=== PATIENT | male | born 1965 | race African-American/Black ===

== ENCOUNTER 2017-05-15 15:04 | Observation (INO) | payer OTHER ==
[2017-05-15] MEDS ORDERED: VERA1TAB17 PO (15:26)
[2017-05-15] MEDS ORDERED: ASPI-516 CHEW (15:26)
--- NOTE | 2017-05-15 15:27 | PD ---
HPI Chief Complaint: Chest pain Time Seen by Provider: 15:26 Travel History International Travel<30 days: No Contact w/Intl Traveler<30days: No History of Present Illness HPI 51yo M with PMH of prostate CA on ciarichards presents to the ED with c/o left sided chest pain that started an hour ago. It is squeezing and travels to left shoulder with some numbness in left shoulder. Associated with sob, nausea. Pt had an episode of chest pain this morning and went to OR where he had an EKG and was told to go to the nearest ED if he has chest pain again . No blood work was done. Denies any fever, vomiting, abdominal pain. Follows with [place] special police officer. Said had cardiac cath 2 years ago and showed myocardial bridging of the LAD. [facility] Social History Tobacco Use: No Allergies-Medications (Allergen,Severity, Reaction): Coded Allergies: prednisone (Verified Allergy, Mild, rash, 05/15/17) Nitrate Analogues (Verified Allergy, Unknown, 05/15/17) Reported Meds & Prescriptions Reported Meds & Active Scripts Active Reported Aspirin 81 Mg Chew 81 Mg CHEW DAILY Verapamil ER 24 HR (Verapamil HCl) 240 Mg Tab 240 Mg PO HS Review of Systems Except as stated in HPI: all other systems reviewed are Neg Physical Exam Narrative GENERAL: 51yo M in mild distress. SKIN: Focused skin assessment warm/dry. HEAD: Atraumatic. Normocephalic. EYES: Pupils equal and round. No scleral icterus. No injection or drainage. CARDIOVASCULAR: Regular rate and rhythm. No murmur appreciated. RESPIRATORY: No accessory muscle use. Clear to auscultation. Breath sounds equal bilaterally. GASTROINTESTINAL: Abdomen soft, non-tender, nondistended. MUSCULOSKELETAL: No obvious deformities. No clubbing. No cyanosis. No edema. NEUROLOGICAL: Awake and alert. No obvious cranial nerve deficits. Motor grossly within normal limits. Normal speech. PSYCHIATRIC: Appropriate mood and affect; insight and judgment normal. Data Data Last Documented VS Vital Signs Date Time Temp Pulse Resp B/P (MAP) Pulse Ox O2 Delivery O2 Flow Rate FiO2 05/15/17 16:31 68 124/73 (90) 98 05/15/17 15:32 98.7 16 Orders Orders Basic Metabolic Panel (Bmp) (05/15/17 15:26) Complete Blood Count With Diff (05/15/17 15:26) Magnesium (Mg) (12/15/17 15:26) Prothrombin Time / Inr (Pt) (05/15/17 15:26) Act Partial Throm Time (Ptt) (05/15/17 15:26) Troponin I (05/15/17 15:26) Chest, Single Ap (05/15/17 15:26) Ondansetron Inj (Zofran Inj) (05/15/17 16:00) Morphine Inj (Morphine Inj) (05/15/17 16:00) Admit Order (Ed Use Only) (05/15/17 16:52) Labs Laboratory Tests Test 05/15/17 15:20 White Blood Count 5.8 TH/MM3 Red Blood Count 4.86 MIL/MM3 Hemoglobin 13.4 GM/DL Hematocrit 41.2 % Mean Corpuscular Volume 84.7 FL Mean Corpuscular Hemoglobin 27.5 PG Mean Corpuscular Hemoglobin Concent 32.5 % Red Cell Distribution Width 13.7 % Platelet Count 307 TH/MM3 Mean Platelet Volume 7.5 FL Neutrophils (%) (Auto) 52.0 % Lymphocytes (%) (Auto) 30.0 % Monocytes (%) (Auto) 8.2 % Eosinophils (%) (Auto) 6.5 % Basophils (%) (Auto) 3.3 % Neutrophils # (Auto) 3.0 TH/MM3 Lymphocytes # (Auto) 1.7 TH/MM3 Monocytes # (Auto) 0.5 TH/MM3 Eosinophils # (Auto) 0.4 TH/MM3 Basophils # (Auto) 0.2 TH/MM3 CBC Comment DIFF FINAL Differential Comment Prothrombin Time 10.8 SEC Prothromb Time International Ratio 1.1 RATIO Activated Partial Thromboplast Time 28.0 SEC D-Dimer Quantitative (PE/DVT) 0.76 MG/L FEU Blood Urea Nitrogen 14 MG/DL Creatinine 0.92 MG/DL Random Glucose 111 MG/DL Calcium Level 8.9 MG/DL Magnesium Level 1.9 MG/DL Sodium Level 138 MEQ/L Potassium Level 3.5 MEQ/L Chloride Level 104 MEQ/L Carbon Dioxide Level 26.5 MEQ/L Anion Gap 8 MEQ/L Estimat Glomerular Filtration Rate 105 ML/MIN Troponin I LESS THAN 0.02 NG/ML MDM Medical Decision Making Medical Screen Exam Complete: Yes Emergency Medical Condition: Yes Interpretation(s) EKG: NSR 69bpm. LAD. LVH. No ST segment elevation or depression. Differential Diagnosis ACS vs. pericarditis vs. GERD Narrative Course 51yo M with typical chest pain. Labs reviewed, no leukocytosis. Troponin negative. CXR showed mild atelectasis. Pt already took aspirin and given morphine 2mg which helped with the pain. Will admit to chest pain center for serial EKG and cardiac enzymes. Diagnosis Primary Impression: Chest pain Qualified Codes: R07.9 - Chest pain, unspecified Admitting Information Admitting Physician Requests: Alis Velasco DO May 15, 2017 15:27
[2017-05-15 15:32] VITALS: BP 142/84; PULSE 70; RESP 16; TEMP 98.7; O2SAT 97
--- NOTE | 2017-05-15 15:56 | RADRPT ---
EXAM DATE/TIME: 05/15/2017 15:46 [facility] COMPARISON: No previous studies available for comparison. INDICATIONS : Chest pain. MEDICAL HISTORY : None. SURGICAL HISTORY : None. ENCOUNTER: Initial ACUITY: 1 day PAIN SCORE: 7/10 LOCATION: Bilateral chest FINDINGS: A single view of the chest demonstrates the lungs to be symmetrically aerated without evidence of mas s, infiltrate or effusion. There is mild platelike atelectasis in both lung bases. The cardiomediast inal contours are unremarkable. Osseous structures are intact. CONCLUSION: Mild platelike atelectasis in both lower lungs. Enzo Mckinney MD on May 15, 2017 at 15:54 Board Certified Radiologist. This report was verified electronically.
[2017-05-15 15:58] LABS: BASOPHIL # 0.2 TH/MM3 (0-0.2); BASOPHIL % 3.3 % (0.0-2.0); EOSINOPHIL # 0.4 TH/MM3 (0-0.4); EOSINOPHIL % 6.5 % (0.0-4.0); HEMATOCRIT 41.2 % (39.0-51.0); HEMO FLAGS DIFF FINAL; LYMPHOCYTE # 1.7 TH/MM3 (1.0-4.8); MEAN CELL VOLUME 84.7 FL (80.0-100.0); MEAN CORPUSCULAR HEMOGLOBIN 27.5 PG (27.0-34.0); MEAN CORPUSCULAR HGB CONC 32.5 % (32.0-36.0); MONO % 8.2 % (0.0-8.0); PLATELET COUNT 307 TH/MM3 (150-450); RED BLOOD COUNT 4.86 MIL/MM3 (4.50-5.90); RED CELL DISTRIBUTION WIDTH 13.7 % (11.6-17.2); WHITE BLOOD COUNT 5.8 TH/MM3 (4.0-11.0)
[2017-05-15] MEDS ORDERED: MORPHINE SULFATE 2 MG/ML INJ IV PUSH ONE (16:00)
[2017-05-15] MEDS ORDERED: ONDANSETRON HCL 4 MG/2 ML VIAL IV PUSH ONE (16:00)
[2017-05-15 16:01] LABS: CHLORIDE 104 MEQ/L (98-107); POTASSIUM 3.5 MEQ/L (3.5-5.1); SODIUM (NA) 138 MEQ/L (136-145)
[2017-05-15 16:04] LABS: ANION GAP 8 MEQ/L (5-15); BICARBONATE 26.5 MEQ/L (21.0-32.0); BLOOD UREA NITROGEN 14 MG/DL (7-18); MAGNESIUM 1.9 MG/DL (1.5-2.5)
[2017-05-15 16:07] LABS: GLOMERULAR FILTRATION RATE 105 ML/MIN (>89)
[2017-05-15 16:15] LABS: INTERNATIONAL NORMALIZED RATIO 1.1 RATIO; PROTHROMBIN TIME - PATIENT 10.8 SEC (9.8-11.6)
[2017-05-15 16:31] VITALS: BP 124/73; PULSE 68; O2SAT 98
[2017-05-15] MEDS ORDERED: ACETAMINOPHEN 325 MG TAB PO PRN (17:15)
[2017-05-15] MEDS ORDERED: SODIUM CHLORIDE 0.9% FLUSH 10 ML FLUSH IV FLUSH PRN (17:15)
[2017-05-15] MEDS ORDERED: NALOXONE HCL 0.4 MG/ML AMP IV PUSH PRN (17:15)
[2017-05-15] MEDS ORDERED: ONDANSETRON HCL 4 MG/2 ML VIAL IVP PRN (17:15)
--- NOTE | 2017-05-15 17:24 | HHI.HP ---
[facility] Admission Diagnosis Chest pain Diagnoses: Chief Complaint: Chest pain Travel History International Travel<30 Days: No Contact w/Intl Traveler <30 Da: No Traveled to Known Affected Are: No History of Present Illness This patient is a 51-year-old gentleman with a known history of myocardial bridging per his own report and per cardiac catheterization done 2 years ago through the [facility] in [place]. Patient has had intermittent angina since 2 years ago. He reports increasing chest pain over the last several days with worsening today. Patient was at work and on his way back he did have a chest pain so he did come to our hospital although he does live in [place]. He says the pain is severe substernal radiating into the neck and to the left shoulder. He does have abnormal EKG on my report there is a sinus arrhythmia however there are no signs of ischemic changes. His cardiac enzymes are negative. Patient has had Cialis regularly and does not take nitroglycerin and does not tolerate beta blockers due to dizziness. He has been on verapamil. He reports intermittent arrhythmias including episodes of nonsustained ventricular tachycardia which have coincided with his chest pain/angina. He also reports electrolyte abnormalities that have needed correction as well. This time the patient is chest pain-free after IV morphine. He will be observed and cardiology will be notified for any assistance in managing this, atypical cardiac related chest pain Review of Systems Constitutional: DENIES: Diaphoretic episodes, Fatigue, Fever, Weight gain, Weight loss, Chills, Dizziness, Change in appetite, Night Sweats Endocrine: DENIES: Heat/cold intolerance, Polydipsia, Polyuria, Polyphagia Eyes: DENIES: Blurred vision, Diplopia, Eye inflammation, Eye pain, Vision loss , Photosensitivity, Double Vision Ears, nose, mouth, throat: DENIES: Tinnitus, Hearing loss, Vertigo, Nasal discharge, Oral lesions, Throat pain, Hoarseness, Ear Pain, Running Nose, Epistaxis, Sinus Pain, Toothache, Odynophagia Respiratory: DENIES: Apneas, Cough, Snoring, Wheezing, Hemoptysis, Sputum production, Shortness of breath Cardiovascular: COMPLAINS OF: Chest pain, DENIES: Palpitations, Syncope, Dyspnea on Exertion, PND, Lower Extremity Edema, Orthopnea, Claudication Gastrointestinal: DENIES: Abdominal pain, Black stools, Bloody stools, Constipation, Diarrhea, Nausea, Vomiting, Difficulty Swallowing, Anorexia Genitourinary: DENIES: Sexual dysfunction, Urinary frequency, Urinary incontinence, Urgency, Hematuria, Dysuria, Nocturia, Penile Discharge, Testicular Pain, Testicular Swelling Musculoskeletal: DENIES: Joint pain, Muscle aches, Stiffness, Joint Swelling, Back pain, Neck pain Integumentary: DENIES: Abnormal pigmentation, Nail changes, Pruritus, Rash Hematologic/lymphatic: DENIES: Bruising, Lymphadenopathy Immunologic/allergic: DENIES: Eczema, Urticaria Neurologic: DENIES: Abnormal gait, Headache, Localized weakness, Paresthesias, Seizures, Speech Problems, Tremor, Poor Balance Psychiatric: DENIES: Anxiety, Confusion, Mood changes, Depression, Hallucinations, Agitation, Suicidal Ideation, Homicidal Ideation, Delusions Except as stated in HPI: all other systems reviewed are Neg Past Family Social History Past Medical History Prostate cancer Myocardial bridging syndrome History of nonsustained atrial tachycardia Angina Past Surgical History Radical prostatectomy, cholecystectomy Reported Medications Reviewed in the EMR, nothing new Allergies: Coded Allergies: prednisone (Verified Allergy, Mild, rash, 05/15/17) Nitrate Analogues (Verified Allergy, Unknown, 05/15/17) Active Ordered Medications Reviewed in the EMR Family History Father at 62 of unknown causes, mother from lung cancer in her 80s 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 SKIN: No rashes, ecchymoses or lesions. Cool and dry. HEAD: Atraumatic. Normocephalic. No temporal or scalp tenderness. EYES: Pupils equal round and reactive. Extraocular motions intact. No scleral icterus. No injection or drainage. ENT: Nose without bleeding, purulent drainage or septal hematoma. Throat without erythema, tonsillar hypertrophy or exudate. Uvula midline. Airway patent. NECK: Trachea midline. No JVD or lymphadenopathy. Supple, nontender, no meningeal signs. CARDIOVASCULAR: Regular rate and rhythm without murmurs, gallops, or rubs. RESPIRATORY: Clear to auscultation. Breath sounds equal bilaterally. No wheezes , rales, or rhonchi. GASTROINTESTINAL: Abdomen soft, non-tender, nondistended. No hepato-splenomegaly , or palpable masses. No guarding. MUSCULOSKELETAL: Extremities without clubbing, cyanosis, or edema. No joint tenderness, effusion, or edema noted. No calf tenderness. Negative Homans sign bilaterally. NEUROLOGICAL: Awake and alert. Cranial nerves II through XII intact. Motor and sensory grossly within normal limits. Five out of 5 muscle strength in all muscle groups. Normal speech. Laboratory Laboratory Tests Test 05/15/17 15:20 White Blood Count 5.8 Red Blood Count 4.86 Hemoglobin 13.4 Hematocrit 41.2 Mean Corpuscular Volume 84.7 Mean Corpuscular Hemoglobin 27.5 Mean Corpuscular Hemoglobin Concent 32.5 Red Cell Distribution Width 13.7 Platelet Count 307 Mean Platelet Volume 7.5 Neutrophils (%) (Auto) 52.0 Lymphocytes (%) (Auto) 30.0 Monocytes (%) (Auto) 8.2 Eosinophils (%) (Auto) 6.5 Basophils (%) (Auto) 3.3 Neutrophils # (Auto) 3.0 Lymphocytes # (Auto) 1.7 Monocytes # (Auto) 0.5 Eosinophils # (Auto) 0.4 Basophils # (Auto) 0.2 CBC Comment DIFF FINAL Differential Comment Prothrombin Time 10.8 Prothromb Time International Ratio 1.1 Activated Partial Thromboplast Time 28.0 Blood Urea Nitrogen 14 Creatinine 0.92 Random Glucose 111 Calcium Level 8.9 Magnesium Level 1.9 Sodium Level 138 Potassium Level 3.5 Chloride Level 104 Carbon Dioxide Level 26.5 Anion Gap 8 Estimat Glomerular Filtration Rate 105 Troponin I LESS THAN 0.02 Result Diagram: 05/15/17 1520 05/15/17 1520 Imaging Last Impressions Chest X-Ray 05/15/17 1526 Signed Impressions: Service Date/Time: Monday, May 15, 2017 15:46 - CONCLUSION: Mild platelike atelectasis in both lower lungs. Enzo Mckinney MD Caprinmaricel VTE Risk Assessment Caprini VTE Risk Assessment: Mod/High Risk (score >= 2) Caprini Risk Assessment Model Point Value = 1 Point Value = 2 Point Value = 3 Point Value = 5 Age 41-60 Minor surgery BMI > 25 kg/m2 Swollen legs Varicose veins or History of unexplained or recurrent spontaneous Oral contraceptives or hormone replacement Sepsis (< 1 month) Serious lung disease, including pneumonia (< 1 month) Abnormal pulmonary function Acute myocardial infarction Congestive heart failure (< 1 month) History of inflammatory bowel disease Medical patient at bed rest Age 61-74 Arthroscopic surgery Major open surgery (> 45 min) Laparoscopic surgery (> 45 min) Malignancy Confined to bed (> 72 hours) Immobilizing plaster cast Central venous access Age >= 75 History of VTE Family history of VTE Factor V Leiden Prothrombin [id number] Lupus anticoagulant Anticardiolipin antibodies Elevated serum homocysteine Heparin-induced thrombocytopenia Other congenital or acquired thrombophilia Stroke (< 1 month) Elective arthroplasty Hip, pelvis, or leg fracture Acute spinal cord injury (< 1 month) Prophylaxis Regimen Total Risk Factor Score Risk Level Prophylaxis Regimen 0-1 Low Early ambulation 2 Moderate Order ONE of the following: *Sequential Compression Device (SCD) *Heparin 5000 units SQ BID 3-4 Higher Order ONE of the following medications: *Heparin 5000 units SQ TID *Enoxaparin/Lovenox 40 mg SQ daily (WT < 150 kg, CrCl > 30 mL/min) *Enoxaparin/Lovenox 30 mg SQ daily (WT < 150 kg, CrCl > 10-29 mL/min) *Enoxaparin/Lovenox 30 mg SQ BID (WT < 150 kg, CrCl > 30 mL/min) AND/OR *Sequential Compression Device (SCD) 5 or more Highest Order ONE of the following medications: *Heparin 5000 units SQ TID (Preferred with Epidurals) *Enoxaparin/Lovenox 40 mg SQ daily (WT < 150 kg, CrCl > 30 mL/min) *Enoxaparin/Lovenox 30 mg SQ daily (WT < 150 kg, CrCl > 10-29 mL/min) *Enoxaparin/Lovenox 30 mg SQ BID (WT < 150 kg, CrCl > 30 mL/min) AND *Sequential Compression Device (SCD) Assessment and Plan Problem List: (1) Chest pain ICD Code: R07.9 - Chest pain, unspecified Status: Acute Plan: Patient with a history of myocardial bridging and most likely had angina related to that. He has been referred as an outpatient to cardiology through the [place] [facility] but they have no seed specialist and he was in the process of being referred to a private sector EP physician. We'll continue with telemetry Follow cardiac enzymes (previous cardiac catheterization 2 years ago with clear coronaries and myocardial bridging per patient. Patient unable to tolerate beta blockers due to dizziness and is unable to tolerate nitroglycerin due to use of Cialis (status post prostatectomy). Patient has a history of ventricular arrhythmias and we will continue with close observation and telemetry as well as check electrolytes for abdomen on these and replace as needed Patient aware planning in agreement Problem Qualifiers (1) Chest pain: Qualified Codes: R07.9 - Chest pain, unspecified Suzi Stacy MD May 15, 2017 17:24
[2017-05-15 18:15] VITALS: BP 136/87; PULSE 67; RESP 18; TEMP 97.7; O2SAT 96
[2017-05-15 20:00] VITALS: BP 131/86; PULSE 64; RESP 18; TEMP 98; O2SAT 97
[2017-05-15] MEDS: SODIUM CHLORIDE 0.9% FLUSH 10 ML FLUSH IV FLUSH SCH (21:00)
--- NOTE | 2017-05-15 21:33 | EKG ---
Date Performed: 05/15/2017 Time Performed: 15:11:00 PTAGE: 51 years EKG: Sinus rhythm MINIMAL VOLTAGE CRITERIA FOR LVH, CONSIDER NORMAL VARIANT NONSPECIFIC T-WAVE ABNORMALITY BORDERLINE ECG NO PREVIOUS TRACING DOCTOR: Bradly Hilliard Interpretating Date/Time 05/15/2017 21:31:54
[2017-05-15 22:46] LABS: MAGNESIUM 1.8 MG/DL (1.5-2.5)
[2017-05-15] MEDS: VERAPAMIL HCL 240 MG SUSTAINED RELEASE TAB PO SCH (22:49)
[2017-05-15] MEDS: MORPHINE SULFATE 4 MG/ML INJ IV PUSH PRN (22:50)
[2017-05-16] VITALS: BP 132/84; PULSE 62; RESP 18; TEMP 98; O2SAT 94
[2017-05-16] MEDS: MORPHINE SULFATE 4 MG/ML INJ IV PUSH PRN ×6 (01:39→23:54)
[2017-05-16 07:53] LABS: AUTOMATED NEUTROPHIL # 2.2 TH/MM3 (1.8-7.7); BASOPHIL # 0.1 TH/MM3 (0-0.2); BASOPHIL % 1.1 % (0.0-2.0); EOSINOPHIL # 0.4 TH/MM3 (0-0.4); EOSINOPHIL % 7.1 % (0.0-4.0); HEMATOCRIT 38.2 % (39.0-51.0); HEMO FLAGS DIFF FINAL; LYMPH % 43.9 % (9.0-44.0); LYMPHOCYTE # 2.5 TH/MM3 (1.0-4.8); MEAN CELL VOLUME 83.4 FL (80.0-100.0); MEAN CORPUSCULAR HEMOGLOBIN 27.7 PG (27.0-34.0); MEAN CORPUSCULAR HGB CONC 33.2 % (32.0-36.0); MONO % 9.4 % (0.0-8.0); NEUT % 38.5 % (16.0-70.0); PLATELET COUNT 257 TH/MM3 (150-450); RED BLOOD COUNT 4.57 MIL/MM3 (4.50-5.90); RED CELL DISTRIBUTION WIDTH 13.5 % (11.6-17.2); WHITE BLOOD COUNT 5.7 TH/MM3 (4.0-11.0)
[2017-05-16 07:56] LABS: POTASSIUM 3.8 MEQ/L (3.5-5.1)
[2017-05-16 08:00] VITALS: BP 140/87; PULSE 64; RESP 18; TEMP 97.4; O2SAT 94
[2017-05-16 08:00] LABS: BICARBONATE 26.6 MEQ/L (21.0-32.0)
[2017-05-16] MEDS: SODIUM CHLORIDE 0.9% FLUSH 10 ML FLUSH IV FLUSH SCH ×2 (08:35→19:54)
[2017-05-16 12:00] VITALS: BP 135/81; PULSE 67; RESP 19; TEMP 97.7; O2SAT 94
--- NOTE | 2017-05-16 13:41 | HHI.PR ---
Subjective Remarks Patient still complain of mild chest pain although it is improved. Cardiology evaluation appreciated. Objective Vitals Vital Signs Date Time Temp Pulse Resp B/P (MAP) Pulse Ox O2 Delivery O2 Flow Rate FiO2 05/16/17 12:00 97.7 67 19 135/81 (99) 94 05/16/17 08:00 97.4 64 18 140/87 (104) 94 05/16/17 00:00 98.0 62 18 132/84 (100) 94 05/15/17 20:00 98.0 64 18 131/86 (101) 97 05/15/17 18:15 97.7 67 18 136/87 (103) 96 05/15/17 18:09 05/15/17 16:31 68 124/73 (90) 98 05/15/17 15:37 70 05/15/17 15:32 98.7 70 16 142/84 (103) 97 I/O 05/15/17 05/15/17 05/15/17 05/16/17 05/16/17 05/16/17 07:00 15:00 23:00 07:00 15:00 23:00 Intake Total 460 ml Balance 460 ml Intake Oral 460 ml # Voids 2 # Bowel Movements 0 Result Diagram: 05/16/17 0645 05/16/17 0645 A/P Problem List: (1) Chest pain ICD Code: R07.9 - Chest pain, unspecified Status: Acute Plan: Patient with angina Myocardial perfusion study pending Follow-up results (2) D-dimer, elevated ICD Code: R79.89 - Other specified abnormal findings of blood chemistry Plan: We'll continue with Lovenox Follow-up clinically Discharge Planning home pending nuc Problem Qualifiers (1) Chest pain: Qualified Codes: R07.9 - Chest pain, unspecified Suzi Stacy MD May 16, 2017 13:41
[2017-05-16] MEDS ORDERED: ENOXAPARIN SODIUM 40 MG/0.4 ML SYRINGE SQ SCH (14:00)
--- NOTE | 2017-05-16 14:08 | MB ---
cc: REINA SMALL M.D. DATE OF CONSULTATION: 05/16/2017. REASON FOR CONSULTATION: Chest pain. HISTORY OF PRESENT ILLNESS: The patient is a 51-year-old -[place] male with a history of myocardial bridging by cardiac catheterization two years ago according to the patient, history of prostate cancer, who was in his usual state of health up until yesterday morning when he experienced an episode of substernal chest pain described as "sharp" possibly with some radiation to his left shoulder and back. Associated symptoms include slight shortness of breath and slight nausea. He had recurrence of the chest discomfort later in the afternoon of similar intensity and quality. Both episodes lasted no longer than 10-15 minutes. In the last few months, he has had very infrequent episodes of similar though less intense chest discomfort. He denies pleurisy, lightheadedness, syncope, near-syncope, palpitations, pedal edema, paroxysmal nocturnal dyspnea. PAST MEDICAL HISTORY: As above. No other details currently available. CARDIAC MEDICATIONS AT HOME: 1. Aspirin 81 milligrams daily. 2. Verapamil SR 240 milligrams at bedtime. ALLERGIES: 1. PREDNISONE. 2. NITRATES. FAMILY HISTORY: There is no significant family history of early myocardial infarction. SOCIAL HISTORY: The patient denies alcohol or tobacco abuse. REVIEW OF SYSTEMS: Review of systems as in the history of present illness otherwise negative or noncontributory. He also denies headache, abdominal pain, melena, dyspepsia, bright red blood per rectum, wheezing, cough. PHYSICAL EXAMINATION: VITAL SIGNS: His blood pressure is 135/80 with a pulse of 67, respirations 19. GENERAL: In general, he is a well-developed, well-nourished -Tajik male in no acute distress. HEAD, EYES, EARS, NOSE, THROAT: On HEENT examination, jugular venous pressure is normal. Carotid pulses are 2+ bilaterally and without bruits. CHEST: Examination of the chest reveals clear lung phillips. CARDIAC: On cardiac examination he has a regular rhythm and rate without S3, S4 or murmur. ABDOMEN: On abdominal examination, he has a soft, nontender abdomen. Bowel sounds are present. There is no definite hepatosplenomegaly. EXTREMITIES: No cyanosis, clubbing or edema. LABORATORY DATA: Includes WBC 5.7, hemoglobin 12.7, platelets 257,000, potassium 3.8, BUN 13, creatinine 0.72, negative cardiac enzymes. IMAGING STUDIES: Chest x-ray shows no acute disease. EKGS: EKG shows sinus rhythm, minimal voltage criteria for left ventricular hypertrophy, nonspecific T-wave abnormality. IMPRESSION: Overall atypical chest pains in this 51-year-old -[place] male with a history of hypertension, prostate cancer, left anterior descending myocardial bridging according to the patient demonstrated by cardiac catheterization two years ago. Cardiac enzymes are negative for myocardial infarction. EKG shows no acute S-T-segment or T-wave changes. Rarely myocardial bridging will result in myocardial ischemia. RECOMMENDATIONS: 1. Check a Lexiscan nuclear stress test; if no ischemia is demonstrated, he is cleared for discharge from a cardiac standpoint. 2. Will follow up as needed for any ischemia demonstrated on nuclear stress testing. MD EMELIA Greer/VISHNU /12:42 PM /1:50 PM MTDMary
[2017-05-16 16:00] VITALS: BP 149/90; PULSE 59; RESP 19; TEMP 98.4; O2SAT 94
[2017-05-16] MEDS: VERAPAMIL HCL 240 MG SUSTAINED RELEASE TAB PO SCH ×2 (19:54→23:31)
[2017-05-16 21:22] VITALS: BP 129/83; PULSE 64; RESP 16; TEMP 98.2; O2SAT 97
[2017-05-17 00:04] VITALS: BP 137/83; PULSE 68; RESP 18; O2SAT 98
[2017-05-17] MEDS: MORPHINE SULFATE 4 MG/ML INJ IV PUSH PRN (03:54)
[2017-05-17 04:01] VITALS: BP 157/91; PULSE 76; RESP 16; TEMP 98.6; O2SAT 99
[2017-05-17 06:10] VITALS: PULSE 160
[2017-05-17 07:00] VITALS: PULSE 60
[2017-05-17 07:35] LABS: CHLORIDE 103 MEQ/L (98-107); POTASSIUM 3.8 MEQ/L (3.5-5.1); SODIUM (NA) 137 MEQ/L (136-145)
[2017-05-17 07:38] LABS: ANION GAP 8 MEQ/L (5-15); BICARBONATE 26.4 MEQ/L (21.0-32.0); BLOOD UREA NITROGEN 11 MG/DL (7-18)
[2017-05-17 07:42] LABS: AUTOMATED NEUTROPHIL # 2.5 TH/MM3 (1.8-7.7); BASOPHIL # 0.1 TH/MM3 (0-0.2); BASOPHIL % 1.4 % (0.0-2.0); EOSINOPHIL # 0.4 TH/MM3 (0-0.4); EOSINOPHIL % 7.4 % (0.0-4.0); GLOMERULAR FILTRATION RATE 139 ML/MIN (>89); HEMATOCRIT 38.7 % (39.0-51.0); HEMO FLAGS DIFF FINAL; LYMPH % 33.2 % (9.0-44.0); LYMPHOCYTE # 1.8 TH/MM3 (1.0-4.8); MEAN CELL VOLUME 84.1 FL (80.0-100.0); MEAN CORPUSCULAR HEMOGLOBIN 28.1 PG (27.0-34.0); MEAN CORPUSCULAR HGB CONC 33.4 % (32.0-36.0); MONO % 9.2 % (0.0-8.0); NEUT % 48.8 % (16.0-70.0); PLATELET COUNT 266 TH/MM3 (150-450); RED CELL DISTRIBUTION WIDTH 13.7 % (11.6-17.2); WHITE BLOOD COUNT 5.4 TH/MM3 (4.0-11.0)
[2017-05-17 08:00] VITALS: BP 133/90; PULSE 63; RESP 16; TEMP 97; O2SAT 97
--- NOTE | 2017-05-17 08:43 | HHI.PR ---
Subjective Remarks Patient seen and evaluated in follow-up for effusion likely due to myocardial bridging syndrome. Chest pain is due to now which is his normal baseline. We' ll follow-up completion of stress test Objective Vitals Vital Signs Date Time Temp Pulse Resp B/P (MAP) Pulse Ox O2 Delivery O2 Flow Rate FiO2 05/17/17 06:10 160 05/17/17 06:10 160 05/17/17 04:01 98.6 76 16 157/91 (113) 99 05/17/17 00:04 68 18 137/83 (101) 98 05/16/17 21:22 98.2 64 16 129/83 (98) 97 05/16/17 16:00 98.4 59 19 149/90 (109) 94 05/16/17 12:00 97.7 67 19 135/81 (99) 94 I/O 05/16/17 05/16/17 05/16/17 05/17/17 05/17/17 05/17/17 07:00 15:00 23:00 07:00 15:00 23:00 Intake Total 460 ml Balance 460 ml Intake Oral 460 ml # Voids 2 4 3 # Bowel Movements 0 1 Result Diagram: 05/17/17 0704 05/17/17 0704 Objective Remarks GENERAL: This is a well-nourished, well-developed patient, in no apparent distress. CARDIOVASCULAR: Regular rate and rhythm without murmurs, gallops, or rubs. RESPIRATORY: Clear to auscultation. Breath sounds equal bilaterally. No wheezes , rales, or rhonchi. GASTROINTESTINAL: Abdomen soft, non-tender, nondistended. Normal active bowel sounds MUSCULOSKELETAL: Extremities without clubbing, cyanosis, or edema. NEURO: Alert & Oriented x4 to person, place, time, situation. Moves all ext x4 A/P Problem List: (1) Chest pain ICD Code: R07.9 - Chest pain, unspecified Status: Acute Plan: Patient with resolving angina Myocardial perfusion study pending Follow-up results Discharge Planning home pending nuc Problem Qualifiers (1) Chest pain: Qualified Codes: R07.9 - Chest pain, unspecified Suzi Stacy MD May 17, 2017 08:43
--- NOTE | 2017-05-17 08:45 | HHI.DCPOC ---
Discharge Care Plan Diagnosis: (1) Chest pain Goals to Promote Your Health * To prevent worsening of your condition and complications * To maintain your health at the optimal level Directions to Meet Your Goals Take your medications as prescribed Follow your dietary instruction Follow activity as directed Keep your appointments as scheduled Take your immunizations and boosters as scheduled If your symptoms worsen call your PCP, if no PCP go to Urgent Care Center or Emergency Room Smoking is Dangerous to Your Health. Avoid second hand smoke Call the 24-hour hour crisis hotline for domestic abuse at Suzi Stacy MD May 17, 2017 08:44
[2017-05-17] MEDS ORDERED: ASPIRIN 325 MG TAB PO SCH (09:00)
[2017-05-17] MEDS: SODIUM CHLORIDE 0.9% FLUSH 10 ML FLUSH IV FLUSH SCH (09:11)
[2017-05-17] MEDS ORDERED: REGADENOSON INJ 0.4 MG/5 ML SYR IV ONE (09:34)
--- NOTE | 2017-05-17 10:31 | EKG ---
Date Performed: 05/17/2017 Time Performed: 06:38:01 PTAGE: 51 years EKG: Sinus rhythm , MINIMAL VOLTAGE CRITERIA FOR LVH, CONSIDER NORMAL VARIANT BORDERLINE ECG PREVIOUS TRACING : 05/15/2017 15.11 No significant change from previous tracing noted. DOCTOR: Bradly Hilliard Interpretating Date/Time 05/17/2017 10:30:02
--- NOTE | 2017-05-17 10:36 | RADRPT ---
EXAM DATE/TIME: 05/16/2017 14:25 [facility] COMPARISON: No previous studies available for comparison. INDICATIONS : Substernal chest pain radiating to left shoulder. Angina. Abnormal EKG. DOSE: 30.1 mCi Tc99m Myoview at stress. 30 mCi Tc99m Myoview at rest. 0.4 mg Lexiscan STRESS SYMPTOMS: Shortness of breath. EJECTION FRACTION: 60% MEDICAL HISTORY : Carcinoma, prostate. Myocardial bridging syndrome. SURGICAL HISTORY : Prostatectomy. Cholecystectomy. ENCOUNTER: Initial ACUITY: 1 day PAIN SCALE: 7/10 LOCATION: Substernal chest TECHNIQUE: The patient underwent pharmacologic stress with infusion of prescribed dose. Continuous ECG tracing was monitored during stress. Gated SPECT imaging was performed after stress and conventional SPECT i maging was performed at rest. The examination was performed on a SPECT/CT scanner, both attenuation and non-corrected datasets were reviewed. FINDINGS: The gated cineloop images demonstrate no focal wall motion abnormality. Left ventricular ejection fra ction is calculated 60%. The cardiac stress and rest images demonstrate reversible defect involving the anterior wall suggesti ng ischemia in the LAD distribution. Clinical correlation is recommended. No fixed defect is noted. CONCLUSION: 1. Reversible defect involving the anterior wall suggesting ischemia in the LAD distribution. Clinica l correlation is recommended. 2. No fixed defect to suggest infarct. 3. No wall motion abnormality. RISK CATEGORY: Low risk (less than 1% mortality rate). Ziggy Melvin MD on May 17, 2017 at 10:30 Board Certified Radiologist. This report was verified electronically.
[2017-05-17 12:00] VITALS: BP 145/87; PULSE 74; RESP 16; TEMP 97.1; O2SAT 98
== END 2017-05-17 13:13 | disposition home or self-care (01) ==
LOC: PHED 15:04 → PHEDA 16:53 → PH3A 18:02
PROVIDERS: ADMIT Hospitalist; ATTEND Hospitalist
DX: R07.9 Chest pain, unspecified (principal); I10 Essential (primary) hypertension; Q24.5 Malformation of coronary vessels; J98.11 Atelectasis; R94.31 Abnormal electrocardiogram [ECG] [EKG]; I47.2 Ventricular tachycardia; Z85.46 Personal history of malignant neoplasm of prostate; Z90.79 Acquired absence of other genital organ(s)
CPT/HCPCS: 71010; 78452; 80048; 82550; 83735; 84443; 84484; 85025; 85379; 85610; 85730; 93005; 93017; 96372; 96374; 96375; 96376; 99285; A9502; G0378; J1650; J2270; J2405; J2785

== ENCOUNTER 2017-05-30 20:42 | Observation (INO) | payer OTHER ==
[~2017-05-30] VITALS: Ht 182.9 cm; Wt 93.2 kg
[~2017-05-30 20:42] MED LIST: ASPI-516 CHEW; VERA1TAB17 PO
[2017-05-30 20:45] VITALS: BP 167/95; PULSE 71; RESP 18; TEMP 98; O2SAT 97
[2017-05-30 20:56] VITALS: BP 138/96; PULSE 61; RESP 16; O2SAT 99
[2017-05-30] MEDS ORDERED: SODIUM CHLORIDE 0.9% FLUSH 10 ML FLUSH IVF PRN (21:15)
[2017-05-30] MEDS ORDERED: SODIUM CHLORID 0.9% 500 ML INJ 500 ML IV ONE (21:15)
[2017-05-30] MEDS ORDERED: ONDANSETRON HCL 4 MG/2 ML VIAL IV PUSH ONE (21:15)
[2017-05-30] MEDS ORDERED: MORPHINE SULFATE 4 MG/ML INJ IV PUSH ONE (21:15)
[2017-05-30] MEDS ORDERED: MORPHINE SULFATE 2 MG/ML INJ IV PUSH ONE (21:30)
--- NOTE | 2017-05-30 21:36 | RADRPT ---
EXAM DATE/TIME: 05/30/2017 21:22 [facility] COMPARISON: CHEST SINGLE AP, May 15, 2017, 15:46. INDICATIONS : Chest pain. MEDICAL HISTORY : Carcinoma, prostate. Myocardial bridging syndrome. SURGICAL HISTORY : Cholecystectomy. Prostatectomy ENCOUNTER: Initial ACUITY: 1 day PAIN SCORE: 5/10 LOCATION: middle chest FINDINGS: The lungs are clear without infiltrate, nodule, or mass. There is no appreciable pleural effusion fo r technique. Heart and mediastinum are unremarkable. Multiple right paratracheal and hilar calcified lymph nodes are seen. CONCLUSION: No acute cardiopulmonary disease. Sera Mariscal MD on May 30, 2017 at 21:34 Board Certified Radiologist. This report was verified electronically.
[2017-05-30 21:37] LABS: AUTOMATED NEUTROPHIL # 4.3 TH/MM3 (1.8-7.7); BASOPHIL % 0.2 % (0.0-2.0); EOSINOPHIL # 0.3 TH/MM3 (0-0.4); EOSINOPHIL % 4.3 % (0.0-4.0); HEMATOCRIT 37.4 % (39.0-51.0); HEMOGLOBIN 12.6 GM/DL (13.0-17.0); LYMPH % 31.5 % (9.0-44.0); LYMPHOCYTE # 2.6 TH/MM3 (1.0-4.8); MEAN CELL VOLUME 83.9 FL (80.0-100.0); MEAN CORPUSCULAR HEMOGLOBIN 28.3 PG (27.0-34.0); MEAN CORPUSCULAR HGB CONC 33.7 % (32.0-36.0); MONO % 10.4 % (0.0-8.0); MONOCYTE # 0.8 TH/MM3 (0-0.9); NEUT % 53.6 % (16.0-70.0); PLATELET COUNT 302 TH/MM3 (150-450); RED BLOOD COUNT 4.46 MIL/MM3 (4.50-5.90); RED CELL DISTRIBUTION WIDTH 14.9 % (11.6-17.2); WHITE BLOOD COUNT 8.1 TH/MM3 (4.0-11.0)
--- NOTE | 2017-05-30 21:43 | PD ---
HPI Chief Complaint: Chest Pain Time Seen by Provider: 21:06 Travel History International Travel<30 days: No Contact w/Intl Traveler<30days: No Traveled to known affect area: No History of Present Illness HPI Patient is a 51-year-old male presenting to emergency for evaluation of chest pain. Chest pain started 2 hours prior to arrival. He currently rates his pain 7 out of 10 and states it is pressure-like, radiates to his back and to his left arm. Pain is not exacerbated by movement or deep breathing, it is unrelieved by anything. Patient reports mild nausea but no vomiting. He also states that he is short of breath. Chest pain occurs at rest, it wakes him up at night from sleep. Patient states that he had a heart cath 2 years ago, there was no stent placed. He states he experienced same chest pain 2 weeks ago and presented to the hospital in [place], he reports that he had an abnormal nuclear stress test at that time. Patient states he has a history of myocardial bridging and is currently on verapamil. He takes a baby aspirin daily and he took this today. When the chest pain started he took 2 additional baby aspirins. He cannot take nitroglycerin due to being on Cialis as it interacts. Past medical history is significant for prostate cancer status post prostatectomy, hypertension, myocardial bridging. Patient has no significant family history of heart disease, he is never been a tobacco user and denies any illicit drug use. PFSH Past Medical History Heart Rhythm Problems: Yes (V-Tach) Cancer: Yes (Prostate) Cardiovascular Problems: Yes (myocardial bridging) Hypertension: Yes Past Surgical History Cholecystectomy: Yes Prostatectomy: Yes Other Surgery: No Social History Alcohol Use: No Tobacco Use: No Substance Use: No Allergies-Medications (Allergen,Severity, Reaction): Coded Allergies: prednisone (Verified Allergy, Mild, rash, 05/30/17) Nitrate Analogues (Verified Allergy, Unknown, 05/30/17) Reported Meds & Prescriptions Reported Meds & Active Scripts Active Reported Aspirin 81 Mg Chew 81 Mg CHEW DAILY Verapamil ER 24 HR (Verapamil HCl) 240 Mg Tab 240 Mg PO HS Review of Systems Except as stated in HPI: all other systems reviewed are Neg General / Constitutional: No: Fever Eyes: No: Blurred Vision HENT: No: Headaches, Lightheadedness Cardiovascular: Positive: Chest Pain or Discomfort, Dyspnea on exertion, No: Diaphoresis, Edema Respiratory: Positive: Shortness of Breath Gastrointestinal: Positive: Nausea, No: Vomiting, Diarrhea, Abdominal Pain Musculoskeletal: No: Myalgias Neurologic: No: Weakness, Dizziness, Syncope, Focal Abnormalities Physical Exam Narrative GENERAL: Well-developed, well-appearing, well-nourished alert gentleman. Resting comfortably in no acute distress. SKIN: Warm and dry. HEAD: Atraumatic. Normocephalic. EYES: Pupils equal and round. No scleral icterus. No injection or drainage. ENT: No nasal bleeding or discharge. Mucous membranes pink and moist. NECK: Trachea midline. No JVD. CARDIOVASCULAR: Regular rate and rhythm. RESPIRATORY: No accessory muscle use. Clear to auscultation. Breath sounds equal bilaterally. GASTROINTESTINAL: Abdomen soft, non-tender, nondistended. Hepatic and splenic margins not palpable. MUSCULOSKELETAL: Extremities without clubbing, cyanosis, or edema. No obvious deformities. NEUROLOGICAL: Awake and alert. No obvious cranial nerve deficits. Motor grossly within normal limits. Five out of 5 muscle strength in the arms and legs. Normal speech. PSYCHIATRIC: Appropriate mood and affect; insight and judgment normal. Data Data Last Documented VS Vital Signs Date Time Temp Pulse Resp B/P (MAP) Pulse Ox O2 Delivery O2 Flow Rate FiO2 05/30/17 21:45 16 98 Room Air 05/30/17 20:56 61 05/30/17 20:45 98.0 Orders Orders Electrocardiogram (05/30/17 21:04) Ckmb (Isoenzyme) Profile (05/30/17 21:04) Complete Blood Count With Diff (05/30/17 21:04) Comprehensive Metabolic Panel (05/30/17 21:04) Magnesium (Mg) (05/30/17 21:04) Prothrombin Time / Inr (Pt) (05/30/17 21:04) Act Partial Throm Time (Ptt) (05/30/17 21:04) Troponin I (05/30/17 21:04) Lipase (05/30/17 21:04) Chest, Single Ap (05/30/17 21:04) Ecg Monitoring (05/30/17 21:04) Bilateral Bp Monitoring (05/30/17 21:04) Iv Access Insert/Monitor (05/30/17 21:04) Oximetry (05/30/17 21:04) Oxygen Administration (05/30/17 21:04) Morphine Inj (Morphine Inj) (05/30/17 21:15) Sodium Chloride 0.9% Flush (Ns Flush) (05/30/17 21:15) Sodium Chlorid 0.9% 500 Ml Inj (Ns 500 M (05/30/17 21:15) Ondansetron Inj (Zofran Inj) (05/30/17 21:15) Creatine Kinase (Cpk) (05/30/17 21:04) D-Dimer (05/30/17 21:11) Morphine Inj (Morphine Inj) (05/30/17 21:30) CKMB (05/30/17 21:10) CKMB% (05/30/17 21:10) Admit Order (Ed Use Only) (05/30/17 22:11) Activity Bed Rest With Brp (05/30/17 22:11) Vital Signs (Adult) Q4H (05/30/17 22:11) Cardiac Rhythm .As Directed (05/30/17 22:11) Notify Dr: Other .PRN (05/30/17 22:11) Notify Dr. Parameters (05/30/17 22:11) Resp Oxygen Nasal Cannula (05/30/17 ) Diet Npo (05/31/17 Breakfast) Ckmb (Isoenzyme) Profile (05/30/17 22:11) Ckmb (Isoenzyme) Profile (05/31/17 01:11) Troponin I (05/30/17 22:11) Troponin I (05/31/17 01:11) Electrocardiogram (05/30/17 22:11) Electrocardiogram (05/31/17 01:11) ^ Obtain (05/30/17 22:11) Sodium Chloride 0.9% Flush (Ns Flush) (05/30/17 22:15) Sodium Chloride 0.9% Flush (Ns Flush) (05/31/17 09:00) Acetaminophen (Tylenol) (05/30/17 22:15) Morphine Inj (Morphine Inj) (05/30/17 22:15) Ondansetron Inj (Zofran Inj) (05/30/17 22:15) Aspirin (Aspirin) (05/31/17 09:00) Temazepam (Restoril) (05/30/17 22:15) [employer] / Telemetry LEYDI.Q8H (05/30/17 22:11) Vte Prophylaxis Not Indicated (05/30/17 22:11) Labs Laboratory Tests Test 05/30/17 21:10 White Blood Count 8.1 TH/MM3 Red Blood Count 4.46 MIL/MM3 Hemoglobin 12.6 GM/DL Hematocrit 37.4 % Mean Corpuscular Volume 83.9 FL Mean Corpuscular Hemoglobin 28.3 PG Mean Corpuscular Hemoglobin Concent 33.7 % Red Cell Distribution Width 14.9 % Platelet Count 302 TH/MM3 Mean Platelet Volume 7.0 FL Neutrophils (%) (Auto) 53.6 % Lymphocytes (%) (Auto) 31.5 % Monocytes (%) (Auto) 10.4 % Eosinophils (%) (Auto) 4.3 % Basophils (%) (Auto) 0.2 % Neutrophils # (Auto) 4.3 TH/MM3 Lymphocytes # (Auto) 2.6 TH/MM3 Monocytes # (Auto) 0.8 TH/MM3 Eosinophils # (Auto) 0.3 TH/MM3 Basophils # (Auto) 0.0 TH/MM3 CBC Comment DIFF FINAL Differential Comment Prothrombin Time 10.8 SEC Prothromb Time International Ratio 1.1 RATIO Activated Partial Thromboplast Time 28.3 SEC D-Dimer Quantitative (PE/DVT) 0.33 MG/L FEU Blood Urea Nitrogen 14 MG/DL Creatinine 0.78 MG/DL Random Glucose 98 MG/DL Total Protein 7.8 GM/DL Albumin 3.4 GM/DL Calcium Level 9.0 MG/DL Magnesium Level 1.9 MG/DL Alkaline Phosphatase 66 U/L Aspartate Amino Transf (AST/SGOT) 20 U/L Alanine Aminotransferase (ALT/SGPT) 50 U/L Total Bilirubin 0.2 MG/DL Sodium Level 140 MEQ/L Potassium Level 3.7 MEQ/L Chloride Level 106 MEQ/L Carbon Dioxide Level 24.9 MEQ/L Anion Gap 9 MEQ/L Estimat Glomerular Filtration Rate 127 ML/MIN Total Creatine Kinase 125 U/L Creatine Kinase MB 0.5 NG/ML Troponin I LESS THAN 0.02 NG/ML Lipase 169 U/L MDM Medical Decision Making Medical Screen Exam Complete: Yes Emergency Medical Condition: Yes Medical Record Reviewed: Yes Interpretation(s) Last Impressions Chest X-Ray 05/30/17 Signed Impressions: Service Date/Time: Tuesday, May 30, 2017 21:22 - CONCLUSION: No acute cardiopulmonary disease. Sera Mariscal MD Laboratory Tests Test 05/30/17 21:10 White Blood Count 8.1 TH/MM3 Red Blood Count 4.46 MIL/MM3 Hemoglobin 12.6 GM/DL Hematocrit 37.4 % Mean Corpuscular Volume 83.9 FL Mean Corpuscular Hemoglobin 28.3 PG Mean Corpuscular Hemoglobin Concent 33.7 % Red Cell Distribution Width 14.9 % Platelet Count 302 TH/MM3 Mean Platelet Volume 7.0 FL Neutrophils (%) (Auto) 53.6 % Lymphocytes (%) (Auto) 31.5 % Monocytes (%) (Auto) 10.4 % Eosinophils (%) (Auto) 4.3 % Basophils (%) (Auto) 0.2 % Neutrophils # (Auto) 4.3 TH/MM3 Lymphocytes # (Auto) 2.6 TH/MM3 Monocytes # (Auto) 0.8 TH/MM3 Eosinophils # (Auto) 0.3 TH/MM3 Basophils # (Auto) 0.0 TH/MM3 CBC Comment DIFF FINAL Differential Comment Prothrombin Time 10.8 SEC Prothromb Time International Ratio 1.1 RATIO Activated Partial Thromboplast Time 28.3 SEC D-Dimer Quantitative (PE/DVT) 0.33 MG/L FEU Blood Urea Nitrogen 14 MG/DL Creatinine 0.78 MG/DL Random Glucose 98 MG/DL Total Protein 7.8 GM/DL Albumin 3.4 GM/DL Calcium Level 9.0 MG/DL Magnesium Level 1.9 MG/DL Alkaline Phosphatase 66 U/L Aspartate Amino Transf (AST/SGOT) 20 U/L Alanine Aminotransferase (ALT/SGPT) 50 U/L Total Bilirubin 0.2 MG/DL Sodium Level 140 MEQ/L Potassium Level 3.7 MEQ/L Chloride Level 106 MEQ/L Carbon Dioxide Level 24.9 MEQ/L Anion Gap 9 MEQ/L Estimat Glomerular Filtration Rate 127 ML/MIN Total Creatine Kinase 125 U/L Creatine Kinase MB 0.5 NG/ML Troponin I LESS THAN 0.02 NG/ML Lipase 169 U/L Vital Signs Date Time Temp Pulse Resp B/P (MAP) Pulse Ox O2 Delivery O2 Flow Rate FiO2 05/30/17 20:56 61 16 138/96 (110) 99 Room Air 05/30/17 20:45 98.0 71 18 167/95 (119) 97 Room Air Differential Diagnosis ACS versus NSTEMI versus USA versus pulmonary embolism versus other Narrative Course Patient is a 51-year-old male presenting with a second time in 2 weeks with chest pain. Patient's vital signs are stable, labs and imaging ordered and pending. Medical records reviewed. Patient did have an abnormal stress test 2 weeks ago a stress test resulted with reversible defect involving the anterior wall suggesting ischemia and the LAD distribution. Clinical correlation is recommended. No fixed defect to suggest infarct. No wall motion abnormality. Low risk. Cardiac enzymes were negative 3 sets, d-dimer was elevated at 0.76. Repeat d-dimer ordered at this time. D-dimer is unremarkable, CBC and chemistry with no acute findings, cardiac enzymes are negative 1 set. EKG was reviewed by myself pending physician. No acute abnormalities identified. At this time patient will be placed in the chest pain Center, admit orders placed. Patient is agreeable to plan. Diagnosis Primary Impression: Chest pain Qualified Codes: R07.9 - Chest pain, unspecified Admitting Information Admitting Physician Requests: Observation Condition: Stable Renate Pena May 30, 2017 21:43
[2017-05-30 21:45] VITALS: RESP 16; O2SAT 98
[2017-05-30 21:46] LABS: INTERNATIONAL NORMALIZED RATIO 1.1 RATIO; PROTHROMBIN TIME - PATIENT 10.8 SEC (9.8-11.6)
[2017-05-30 21:54] LABS: ALT (GPT) 50 U/L (12-78)
[2017-05-30 21:58] LABS: ALKALINE PHOSPHATASE 66 U/L (45-117); TOTAL BILIRUBIN ADULT 0.2 MG/DL (0.2-1.0); TOTAL PROTEIN 7.8 GM/DL (6.4-8.2); TROPONIN I LESS THAN 0.02 NG/ML (0.02-0.05)
[2017-05-30 21:59] LABS: ALBUMIN 3.4 GM/DL (3.4-5.0); AST (GOT) 20 U/L (15-37); BICARBONATE 24.9 MEQ/L (21.0-32.0); BLOOD UREA NITROGEN 14 MG/DL (7-18); CHLORIDE 106 MEQ/L (98-107); CREATININE 0.78 MG/DL (0.60-1.30); GLOMERULAR FILTRATION RATE 127 ML/MIN (>89); GLUCOSE,RANDOM 98 MG/DL (74-106); LIPASE 169 U/L (73-393); MAGNESIUM 1.9 MG/DL (1.5-2.5); SODIUM (NA) 140 MEQ/L (136-145)
[2017-05-30] MEDS ORDERED: MORPHINE SULFATE 4 MG/ML INJ IV PUSH PRN (22:15)
[2017-05-30] MEDS ORDERED: ONDANSETRON HCL 4 MG/2 ML VIAL IV PUSH PRN (22:15)
[2017-05-30] MEDS ORDERED: TEMAZEPAM 15 MG CAP PO PRN (22:15)
[2017-05-30] MEDS ORDERED: ACETAMINOPHEN 500 MG CPLT PO PRN (22:15)
[2017-05-30] MEDS ORDERED: SODIUM CHLORIDE 0.9% FLUSH 10 ML FLUSH IV FLUSH PRN (22:15)
[2017-05-30 22:23] VITALS: O2SAT 98
--- NOTE | 2017-05-30 22:34 | EKG ---
Date Performed: 05/30/2017 Time Performed: 21:12:58 PTAGE: 51 years EKG: Sinus rhythm VOLTAGE CRITERIA FOR LVH ABNORMAL ECG Compared to the PREVIOUS TRACING from 05/17/17, no significant change DOCTOR: Ramirez Razo Interpretating Date/Time 05/30/2017 22:31:56
[2017-05-30 23:00] VITALS: BP 130/83
[2017-05-30 23:55] VITALS: BP 151/88; PULSE 59; RESP 18; TEMP 97.9; O2SAT 99
[2017-05-31 00:08] VITALS: PULSE 75
[2017-05-31 01:09] LABS: TROPONIN I LESS THAN 0.02 NG/ML (0.02-0.05)
[2017-05-31] MEDS ORDERED: MORPHINE SULFATE 2 MG/ML INJ IV PUSH PRN (01:15)
[2017-05-31 03:07] VITALS: BP 129/81; PULSE 64; RESP 18; TEMP 98; O2SAT 98
[2017-05-31 03:47] LABS: TROPONIN I LESS THAN 0.02 NG/ML (0.02-0.05)
[2017-05-31 04:35] VITALS: PULSE 56
[2017-05-31 08:10] VITALS: BP 134/83; PULSE 66; RESP 18; TEMP 98.1; O2SAT 97
[2017-05-31] MEDS ORDERED: ASPIRIN 325 MG TAB PO SCH (09:00)
[2017-05-31] MEDS ORDERED: SODIUM CHLORIDE 0.9% FLUSH 10 ML FLUSH IV FLUSH SCH (09:00)
[2017-05-31 09:40] VITALS: PULSE 66
--- NOTE | 2017-05-31 10:21 | HHI.DCPOC ---
Discharge Care Plan Diagnosis: (1) Chest pain Goals to Promote Your Health * To prevent worsening of your condition and complications * To maintain your health at the optimal level Directions to Meet Your Goals Take your medications as prescribed Follow your dietary instruction Follow activity as directed Keep your appointments as scheduled Take your immunizations and boosters as scheduled If your symptoms worsen call your PCP, if no PCP go to Urgent Care Center or Emergency Room Smoking is Dangerous to Your Health. Avoid second hand smoke Call the 24-hour hour crisis hotline for domestic abuse at Diane Betts May 31, 2017 10:21
--- NOTE | 2017-05-31 12:50 | EKG ---
Date Performed: 05/31/2017 Time Performed: 03:13:13 PTAGE: 51 years EKG: Sinus rhythm MODERATE VOLTAGE CRITERIA FOR LVH, CONSIDER NORMAL VARIANT NONSPECIFIC T-WAVE ABNORMALITY BORDERLINE ECG PREVIOUS TRACING : 05/31/2017 03.12 Compared to prior tracing no significant change DOCTOR: Ramirez Razo Interpretating Date/Time 06/02/2017 10:39:33
--- NOTE | 2017-05-31 13:00 | EKG ---
Date Performed: 05/31/2017 Time Performed: 00:01:27 PTAGE: 51 years EKG: SINUS BRADYCARDIA VOLTAGE CRITERIA FOR LVH ABNORMAL ECG PREVIOUS TRACING : 05/30/2017 21.12 Compared to prior tracing no significant change DOCTOR: Ramirez Razo Interpretating Date/Time 05/31/2017 12:59:10
--- NOTE | 2017-05-31 15:02 | HHI.HP ---
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 Kelvin Rome [facility] Chief Complaint chest pain History of Present Illness Patient c/o mid sternal chest pain yesterday with radiation to back and numbness to upper left arm. Happened while he was watching TV lasted 10-15 minutes occurring intermittently yesterday and today constant feels like a soreness 2/10 on 0-10 scale. Pain in similar to what he has had chronically for the last 2 years or so. He follows with the [facility] and had cardiac catheterization ~ 2 years ago which showed myocardial bridging in the LAD area and he is currently on Verapamil. He was here for similar complaints 2 weeks ago and had work up with Lexiscan 05/16/17 demonstrating reversible defect anterior wall suggesting ischemia LAD distribution. No fixed defect. Low risk. EF 60%. He declined cardiac catheterization during last admission, was seen by Dr. 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 He saw another grinding supervisor that reviewed the scan and wasn't concerned as he had Nuclear stress test last June that was reportedly normal. Regardless, he endorses the plan is for a referral to cardiology in [place] through the [place] and he plans to call on Thursday for the appt. He came to the ER to ensure there had not been a concerning change with the pain last evening. Review of Systems Consitutional: DENIES: Fatigue, Fever, Chills, Weight gain, Weight loss Eyes: DENIES: Amaurosis Fugax, Change in vision HEENT: DENIES: Lightheadedness, Change in hearing Respiratory: DENIES: See HPI, Cough, Snoring, Shortness of breath, Wheezing, Sputum production Cardiovascular: COMPLAINS OF: See HPI, Chest pain Gastrointestinal: DENIES: Nausea, Vomiting, Change in bowel habits, Reflux, Bloody stools, Melena Genitourinary: DENIES: Urinary incontinence, Difficulty voiding Integumentary: DENIES: Rash Neurologic: DENIES: Tingling or numbness, Memory problems, Poor Balance, Stroke symptoms Musculoskeletal: DENIES: Joint pain, Muscle pain, Limited range of motion, Back pain Psychiatric: DENIES: Anxiety, Depression, Sleep disturbances Hematologic: DENIES: Bruising tendencies, Bleeding tendencies Endocrine: DENIES: Weight gain, Weight loss, Thyroid disease Past Family Social History Allergies: Coded Allergies: prednisone (Verified Allergy, Mild, rash, 05/30/17) Nitrate Analogues (Verified Allergy, Unknown, 05/30/17) Past Medical History Myocardial bridging, Prostate cancer with Prostatectomy, HTN, ED Reported Medications Reported Meds & Active Scripts Active Reported Aspirin 81 Mg Chew 81 Mg CHEW DAILY Verapamil ER 24 HR (Verapamil HCl) 240 Mg Tab 240 Mg PO HS Family History Denies any family history of early onset CAD Social History Denies Tobacco, ETOH, or Illicit drug use Physical Exam Vital Signs Vital Signs Date Time Temp Pulse Resp B/P (MAP) Pulse Ox O2 Delivery O2 Flow Rate FiO2 05/31/17 09:40 66 05/31/17 08:10 98.1 66 18 134/83 (100) 97 05/31/17 04:35 56 05/31/17 03:07 98.0 64 18 129/81 (97) 98 05/31/17 02:00 18 05/31/17 00:08 75 05/30/17 23:55 97.9 59 18 151/88 (109) 99 05/30/17 23:00 64 16 130/83 (99) 98 05/30/17 22:23 98 05/30/17 21:45 16 98 Room Air 05/30/17 20:56 61 16 138/96 (110) 99 Room Air 05/30/17 20:45 98.0 71 18 167/95 (119) 97 Room Air Physical Exam GENERAL: 51 y.o. AA pleasant male patient well appearing lying quietly in bed watching TV in NAD. SKIN: Warm and dry. HEAD: Atraumatic. Normocephalic. EYES: Pupils equal and round. No scleral icterus. No injection or drainage. ENT: No nasal bleeding or discharge. Mucous membranes pink and moist. NECK: Trachea midline. No JVD. No Carotid Bruits. CARDIOVASCULAR: Regular rate and rhythm. Two heart sounds. No rub, gallop, or murmur RESPIRATORY: No accessory muscle use. Clear to auscultation. Breath sounds equal bilaterally. GASTROINTESTINAL: Abdomen soft, non-tender, nondistended. Hepatic and splenic margins not palpable. MUSCULOSKELETAL: Extremities without clubbing, cyanosis, or edema. No obvious deformities. NEUROLOGICAL: Awake and alert. No obvious cranial nerve deficits. Motor grossly within normal limits. Five out of 5 muscle strength in the arms and legs. Normal speech. PSYCHIATRIC: Appropriate mood and affect; insight and judgment normal. EXT: Moves all extremities well. No leg edema. 2+ pulses. Laboratory Laboratory Tests Test 05/30/17 21:10 05/31/17 00:00 05/31/17 02:40 White Blood Count 8.1 Red Blood Count 4.46 Hemoglobin 12.6 Hematocrit 37.4 Mean Corpuscular Volume 83.9 Mean Corpuscular Hemoglobin 28.3 Mean Corpuscular Hemoglobin Concent 33.7 Red Cell Distribution Width 14.9 Platelet Count 302 Mean Platelet Volume 7.0 Neutrophils (%) (Auto) 53.6 Lymphocytes (%) (Auto) 31.5 Monocytes (%) (Auto) 10.4 Eosinophils (%) (Auto) 4.3 Basophils (%) (Auto) 0.2 Neutrophils # (Auto) 4.3 Lymphocytes # (Auto) 2.6 Monocytes # (Auto) 0.8 Eosinophils # (Auto) 0.3 Basophils # (Auto) 0.0 CBC Comment DIFF FINAL Differential Comment Prothrombin Time 10.8 Prothromb Time International Ratio 1.1 Activated Partial Thromboplast Time 28.3 D-Dimer Quantitative (PE/DVT) 0.33 Blood Urea Nitrogen 14 Creatinine 0.78 Random Glucose 98 Total Protein 7.8 Albumin 3.4 Calcium Level 9.0 Magnesium Level 1.9 Alkaline Phosphatase 66 Aspartate Amino Transf (AST/SGOT) 20 Alanine Aminotransferase (ALT/SGPT) 50 Total Bilirubin 0.2 Sodium Level 140 Potassium Level 3.7 Chloride Level 106 Carbon Dioxide Level 24.9 Anion Gap 9 Estimat Glomerular Filtration Rate 127 Total Creatine Kinase 125 118 109 Creatine Kinase MB 0.5 0.6 LESS THAN 0.5 Troponin I LESS THAN 0.02 LESS THAN 0.02 LESS THAN 0.02 Lipase 169 Result Diagram: 05/30/17210905/30/172109 Imaging Last 24 hours Impressions Chest X-Ray 05/30/172103 Signed Impressions: Service Date/Time: Tuesday, May 30, 2017 21:22 - CONCLUSION: No acute cardiopulmonary disease. Sera Mariscal MD Course EKGs x 3: SR to SB to SR with LVH. No ischemia. Caprini VTE Risk Assessment Caprini VTE Risk Assessment: No/Low Risk (score <= 1) Caprini Risk Assessment Model Point Value = 1 Point Value = 2 Point Value = 3 Point Value = 5 Age 41-60 Minor surgery BMI > 25 kg/m2 Swollen legs Varicose veins or History of unexplained or recurrent spontaneous Oral contraceptives or hormone replacement Sepsis (< 1 month) Serious lung disease, including pneumonia (< 1 month) Abnormal pulmonary function Acute myocardial infarction Congestive heart failure (< 1 month) History of inflammatory bowel disease Medical patient at bed rest Age 61-74 Arthroscopic surgery Major open surgery (> 45 min) Laparoscopic surgery (> 45 min) Malignancy Confined to bed (> 72 hours) Immobilizing plaster cast Central venous access Age >= 75 History of VTE Family history of VTE Factor V Leiden Prothrombin [id number] Lupus anticoagulant Anticardiolipin antibodies Elevated serum homocysteine Heparin-induced thrombocytopenia Other congenital or acquired thrombophilia Stroke (< 1 month) Elective arthroplasty Hip, pelvis, or leg fracture Acute spinal cord injury (< 1 month) Prophylaxis Regimen Total Risk Factor Score Risk Level Prophylaxis Regimen 0-1 Low Early ambulation 2 Moderate Order ONE of the following: *Sequential Compression Device (SCD) *Heparin 5000 units SQ BID 3-4 Higher Order ONE of the following medications: *Heparin 5000 units SQ TID *Enoxaparin/Lovenox 40 mg SQ daily (WT < 150 kg, CrCl > 30 mL/min) *Enoxaparin/Lovenox 30 mg SQ daily (WT < 150 kg, CrCl > 10-29 mL/min) *Enoxaparin/Lovenox 30 mg SQ BID (WT < 150 kg, CrCl > 30 mL/min) AND/OR *Sequential Compression Device (SCD) 5 or more Highest Order ONE of the following medications: *Heparin 5000 units SQ TID (Preferred with Epidurals) *Enoxaparin/Lovenox 40 mg SQ daily (WT < 150 kg, CrCl > 30 mL/min) *Enoxaparin/Lovenox 30 mg SQ daily (WT < 150 kg, CrCl > 10-29 mL/min) *Enoxaparin/Lovenox 30 mg SQ BID (WT < 150 kg, CrCl > 30 mL/min) AND *Sequential Compression Device (SCD) Assessment and Plan Problem List: (1) Chest pain ICD Codes: R07.9 - Chest pain, unspecified Status: Chronic Plan: Patient ruled out for ACS with serial EKGs/cardiac enzymes. F/U at [facility] on Thursday for appt. for Cardiology referral to [facility]. Continue Medications as prior. Discussed Condition With Dr. Rome reviewed history/assessment and patient was seen & examined/ evaluated with plan recommended as above. Diane Betts May 31, 2017 15:02
[2017-05-31] MEDS ORDERED: VERAPAMIL HCL 240 MG SUSTAINED RELEASE TAB PO SCH (21:00)
== END 2017-05-31 11:34 | disposition home or self-care (01) ==
LOC: NEPC 20:42 → NEDA 22:15 → NEPFCDU 23:05
PROVIDERS: ADMIT Internal Medicine Interventional Cardiology; ATTEND Internal Medicine Interventional Cardiology
DX: R07.9 Chest pain, unspecified (principal); I10 Essential (primary) hypertension; Q24.5 Malformation of coronary vessels; R94.31 Abnormal electrocardiogram [ECG] [EKG]; Z79.82 Long term (current) use of aspirin; Z85.46 Personal history of malignant neoplasm of prostate; Z90.79 Acquired absence of other genital organ(s)
CPT/HCPCS: 71010; 80053; 82550; 82552; 83690; 83735; 84484; 85025; 85379; 85610; 85730; 93005; 96374; 96375; 96376; 99285; G0378; J2270; J2405; J7040

== ENCOUNTER 2017-08-05 23:04 | Inpatient (IN) | payer OTHER ==
[~2017-08-05] VITALS: Ht 182.9 cm; Wt 97.7 kg
[2017-08-05 23:14] VITALS: BP 172/98; PULSE 62; RESP 18; TEMP 97.7; O2SAT 97
[2017-08-05] MEDS ORDERED: VENTAER INH (23:14)
[2017-08-05 23:32] VITALS: BP 172/84; RESP 20; O2SAT 98
[2017-08-05 23:35] LABS: BASOPHIL # 0.1 TH/MM3 (0-0.2); BASOPHIL % 1.3 % (0.0-2.0); EOSINOPHIL # 0.4 TH/MM3 (0-0.4); HEMATOCRIT 39.6 % (39.0-51.0); HEMOGLOBIN 13.4 GM/DL (13.0-17.0); LYMPH % 34.8 % (9.0-44.0); LYMPHOCYTE # 3.2 TH/MM3 (1.0-4.8); MEAN CELL VOLUME 82.2 FL (80.0-100.0); MEAN CORPUSCULAR HEMOGLOBIN 27.9 PG (27.0-34.0); MEAN CORPUSCULAR HGB CONC 33.9 % (32.0-36.0); MEAN PLATELET VOLUME 7.9 FL (7.0-11.0); MONO % 6.7 % (0.0-8.0); MONOCYTE # 0.6 TH/MM3 (0-0.9); NEUT % 53.2 % (16.0-70.0); PLATELET COUNT 339 TH/MM3 (150-450); RED BLOOD COUNT 4.81 MIL/MM3 (4.50-5.90); RED CELL DISTRIBUTION WIDTH 14.7 % (11.6-17.2); WHITE BLOOD COUNT 9.3 TH/MM3 (4.0-11.0)
[2017-08-05 23:38] VITALS: BP 172/94; PULSE 62; RESP 20; O2SAT 98
--- NOTE | 2017-08-05 23:48 | RADRPT ---
EXAM DATE/TIME: 08/05/2017 23:31 [facility] COMPARISON: CHEST SINGLE AP, May 30, 2017, 21:22. INDICATIONS : Chest pain for 1 hour MEDICAL HISTORY : Carcinoma, prostate. Myocardial bridging syndrome SURGICAL HISTORY : Cholecystectomy. Prostatectomy ENCOUNTER: Initial ACUITY: 1 day PAIN SCORE: 8/10 LOCATION: Midline chest FINDINGS: PA and lateral views of the chest demonstrate a normal-sized cardiac silhouette. There are large calc ified lymph nodes in the right mediastinum, stable from the prior study. There is mild atelectasis at the lung bases. No effusion, consolidation, or pneumothorax is identified. The bones and soft tissue s demonstrate no acute finding. CONCLUSION: No acute cardiopulmonary abnormality is identified. Stable chest x-ray. Hunter Rosado MD on August 05, 2017 at 23:45 Board Certified Radiologist. This report was verified electronically.
[2017-08-06] VITALS (12 sets, daily range): BP systolic 125–164; BP diastolic 68–93; PULSE 58–72; RESP 20; O2SAT 97–100
[2017-08-06 00:03] LABS: CHLORIDE 103 MEQ/L (98-107); SODIUM (NA) 138 MEQ/L (136-145)
[2017-08-06 00:06] LABS: BICARBONATE 25.6 MEQ/L (21.0-32.0); BLOOD UREA NITROGEN 17 MG/DL (7-18); CALCIUM 8.5 MG/DL (8.5-10.1); GLUCOSE,RANDOM 152 MG/DL (74-106)
--- NOTE | 2017-08-06 00:09 | PD ---
HPI Chief Complaint: Chest Pain Time Seen by Provider: 00:00 Travel History International Travel<30 days: No Contact w/Intl Traveler<30days: No Traveled to known affect area: No History of Present Illness HPI The patient is a 51-year-old male with a history of heart disease and is followed by [facility] who complains of a squeezing, shooting pain in the left sternal area associated with nausea, diaphoresis and shortness of breath and radiating to the back and left arm. The pain began at 2200 today. He states he has a kinked artery in his heart on an angiogram done a year ago at the [facility]. The pain episodes last 15 minutes. He claims the pain level of 8/10. He states he does have a history of nonsustained ventricular tachycardia. He denies any syncopal or near syncopal spells but he does feel palpitations lasting less than a minute. PFSH Past Medical History Heart Rhythm Problems: Yes (palpitations) Cancer: Yes (Prostate) Cardiac Catheterization: Yes Cardiovascular Problems: Yes (miocardial bridging) High Cholesterol: No Congestive Heart Failure: No Diabetes: No Diminished Hearing: No Hypertension: Yes Immunizations Current: Yes Tetanus Vaccination: < 5 Years Influenza Vaccination: No Past Surgical History Cholecystectomy: Yes Coronary Artery Bypass Graft: No Prostatectomy: Yes Other Surgery: No Social History Alcohol Use: No Tobacco Use: No Substance Use: No Allergies-Medications (Allergen,Severity, Reaction): Coded Allergies: prednisone (Verified Allergy, Mild, rash, 08/05/17) Nitrate Analogues (Verified Allergy, Unknown, 08/05/17) Reported Meds & Prescriptions Reported Meds & Active Scripts Active Reported Ventolin Hfa 18 GM Inh (Albuterol Sulfate) 90 Mcg/Act Aer 2 Puff INH Q4-6H PRN Aspirin 81 Mg Chew 81 Mg CHEW DAILY Verapamil ER 24 HR (Verapamil HCl) 240 Mg Tab 240 Mg PO HS Review of Systems Except as stated in HPI: all other systems reviewed are Neg Physical Exam Narrative GENERAL: The patient is alert, oriented 3 in moderate apparent distress with his chest discomfort. His vital signs show blood pressure 172/98 but are otherwise normal. SKIN: Focused skin assessment warm/dry. HEAD: Atraumatic. Normocephalic. EYES: Pupils equal and round. No scleral icterus. No injection or drainage. ENT: No nasal bleeding or discharge. Mucous membranes pink and moist. NECK: Trachea midline. No JVD. CARDIOVASCULAR: Regular rate and rhythm. No murmur appreciated. RESPIRATORY: No accessory muscle use. Clear to auscultation. Breath sounds equal bilaterally. I cannot reproduce the patient's pain by pressing on the chest wall. GASTROINTESTINAL: Abdomen soft, non-tender, nondistended. Hepatic and splenic margins not palpable. MUSCULOSKELETAL: No obvious deformities. No clubbing. No cyanosis. No edema. NEUROLOGICAL: Awake and alert. No obvious cranial nerve deficits. Motor grossly within normal limits. Normal speech. PSYCHIATRIC: Appropriate mood and affect; insight and judgment normal. Data Data Last Documented VS Vital Signs Date Time Temp Pulse Resp B/P (MAP) Pulse Ox O2 Delivery O2 Flow Rate FiO2 08/06/17 00:02 71 20 98 08/05/17 23:38 172/94 (120) 08/05/17 23:14 97.7 Orders Orders Electrocardiogram (08/05/17 23:21) Complete Blood Count With Diff (08/05/17 23:21) Basic Metabolic Panel (Bmp) (08/05/17 23:21) Ckmb (Isoenzyme) Profile (08/05/17 23:21) Troponin I (08/05/17 23:21) Iv Access Insert/Monitor (08/05/17 23:21) Ecg Monitoring (08/05/17 23:21) Oximetry (08/05/17 23:21) Chest, Pa & Lat (08/05/17 ) Ondansetron Inj (Zofran Inj) (08/06/17 00:15) Morphine Inj (Morphine Inj) (08/06/17 00:15) ^ Medication Alert (08/06/17 00:11) ^ Discontinue (08/06/17 00:11) Dextrose 5% In Wate... W/Amiodarone Inj (08/06/17 00:11) Dextrose 5% In Wate... W/Amiodarone Inj (08/06/17 00:21) Vital Signs (Adult) LEYDI.Q4H (08/06/17 00:11) CKMB (08/05/17 23:53) CKMB% (08/05/17 23:53) Labs Laboratory Tests Test 08/05/17 23:25 08/05/17 23:53 White Blood Count 9.3 TH/MM3 Red Blood Count 4.81 MIL/MM3 Hemoglobin 13.4 GM/DL Hematocrit 39.6 % Mean Corpuscular Volume 82.2 FL Mean Corpuscular Hemoglobin 27.9 PG Mean Corpuscular Hemoglobin Concent 33.9 % Red Cell Distribution Width 14.7 % Platelet Count 339 TH/MM3 Mean Platelet Volume 7.9 FL Neutrophils (%) (Auto) 53.2 % Lymphocytes (%) (Auto) 34.8 % Monocytes (%) (Auto) 6.7 % Eosinophils (%) (Auto) 4.0 % Basophils (%) (Auto) 1.3 % Neutrophils # (Auto) 5.0 TH/MM3 Lymphocytes # (Auto) 3.2 TH/MM3 Monocytes # (Auto) 0.6 TH/MM3 Eosinophils # (Auto) 0.4 TH/MM3 Basophils # (Auto) 0.1 TH/MM3 CBC Comment DIFF FINAL Differential Comment Blood Urea Nitrogen 17 MG/DL Creatinine 1.10 MG/DL Random Glucose 152 MG/DL Calcium Level 8.5 MG/DL Sodium Level 138 MEQ/L Potassium Level 3.2 MEQ/L Chloride Level 103 MEQ/L Carbon Dioxide Level 25.6 MEQ/L Anion Gap 9 MEQ/L Estimat Glomerular Filtration Rate 86 ML/MIN Total Creatine Kinase 115 U/L Creatine Kinase MB LESS THAN 0.5 NG/ML Troponin I LESS THAN 0.02 NG/ML MDM Medical Decision Making Medical Screen Exam Complete: Yes Emergency Medical Condition: Yes Medical Record Reviewed: Yes Interpretation(s) The EKG and no acute ST elevation or depression. Differential Diagnosis Acute coronary syndrome, ventricular tachycardia, other dysrhythmia, electrolyte disorder, non-STEMI Narrative Course We started an amiodarone drip and the patient appeared to go into PAT with a rate of about 150. We discontinued the amiodarone and it came down to normal sinus rhythm over the next few minutes. The patient states he does not want amiodarone again. I suggested giving the patient Lopressor to slow the rate but the patient states he does not do well with Lopressor and would not allow the Lopressor. At this point the patient is comfortable, his pain is down to a 4/10 and I discussed the patient with Dr. Harrison and the patient will be transferred to [place]. Also discussed the patient with Dr. Nixon Gardner. I discussed the patient with these physicians before the events with amiodarone. Diagnosis Primary Impression: Chest pain Additional Impression: Nonsustained ventricular tachycardia Admitting Information Admitting Physician Requests: Admit Jef Dueñas MD Aug 06, 2017 00:09
[2017-08-06 00:10] LABS: GLOMERULAR FILTRATION RATE 86 ML/MIN (>89)
[2017-08-06] MEDS ORDERED: AMIODARONE INJ 150 MG in DEXTROSE 5% IN WATER 100ML INJ 100 ML IV ONE ×2 (00:11)
[2017-08-06] MEDS ORDERED: MORPHINE SULFATE 4 MG/ML INJ IV PUSH ONE (00:15)
[2017-08-06] MEDS ORDERED: ONDANSETRON HCL 4 MG/2 ML VIAL IV ONE (00:15)
[2017-08-06 00:16] LABS: TROPONIN I LESS THAN 0.02 NG/ML (0.02-0.05)
[2017-08-06] MEDS ORDERED: AMIODARONE INJ 450 MG in DEXTROSE 5% IN WATE(EXCEL) INJ 241 ML IV PRN ×2 (00:21)
[2017-08-06] MEDS ORDERED: SODIUM CHLOR 0.9% 1000 ML INJ 1,000 ML IV SCH (02:31)
[2017-08-06] MEDS ORDERED: RESP: ALBUTEROL 2.5 MG/IPRATROPIUM 0.5 MG NEB (PRN) INH (02:45)
[2017-08-06] MEDS ORDERED: SENNOSIDES 8.6 MG TAB PO PRN (02:45)
[2017-08-06] MEDS ORDERED: MORPHINE SULFATE 2 MG/ML INJ IV PRN (02:45)
[2017-08-06] MEDS ORDERED: LACTULOSE SYRUP 20 GM/30 ML CUP PO PRN (02:45)
[2017-08-06] MEDS ORDERED: BISACODYL 10 MG SUPP RECTAL PRN (02:45)
[2017-08-06] MEDS ORDERED: MISCELLANEOUS NURSING INFORMATION XX SCH (02:45)
[2017-08-06] MEDS ORDERED: MAGNESIUM HYDROXIDE SUSP 30 ML CUP PO PRN (02:45)
[2017-08-06] MEDS ORDERED: CHLORHEXIDINE GLUCONATE 2 % 1 PACK (2 CLOTHS) TOP PRN (02:45)
[2017-08-06] MEDS ORDERED: RESP: ALBUTEROL 2.5 MG/IPRATROPIUM 0.5 MG NEB (SCH) INH (04:00)
[2017-08-06] MEDS ORDERED: CHLORHEXIDINE GLUCONATE 2 % 1 PACK (2 CLOTHS) TOP SCH (04:00)
[2017-08-06] MEDS ORDERED: ENOXAPARIN SODIUM 40 MG/0.4 ML SYRINGE SQ SCH (09:00)
[2017-08-06] MEDS ORDERED: DOCUSATE SODIUM 50 MG/SENNA 8.6 MG TAB PO SCH (09:00)
[2017-08-06] MEDS ORDERED: FAMOTIDINE 20 MG/2 ML VIAL IV PUSH SCH (09:00)
[2017-08-06] MEDS ORDERED: ASPIRIN 81 MG CHEW TAB CHEW SCH (09:00)
--- NOTE | 2017-08-06 18:32 | EKG ---
Date Performed: 08/06/2017 Time Performed: 04:04:58 PTAGE: 51 years EKG: SINUS BRADYCARDIA VOLTAGE CRITERIA FOR LVH NONSPECIFIC T-WAVE ABNORMALITY ABNORMAL ECG PREVIOUS TRACING : 08/06/2017 02.44 No significant change from previous tracing noted. DOCTOR: Bradly Hilliard Interpretating Date/Time 08/06/2017 18:30:14
--- NOTE | 2017-08-06 18:33 | EKG ---
Date Performed: 08/06/2017 Time Performed: 02:44:23 PTAGE: 51 years EKG: Sinus rhythm VOLTAGE CRITERIA FOR LVH NONSPECIFIC T-WAVE ABNORMALITY ABNORMAL ECG PREVIOUS TRACING : 05/31/2017 03.13 No significant change from previous tracing noted. DOCTOR: Bradly Hilliard Interpretating Date/Time 08/06/2017 18:31:32
[2017-08-06] MEDS ORDERED: VERAPAMIL HCL 240 MG SUSTAINED RELEASE TAB PO SCH (21:00)
--- NOTE | 2017-08-06 21:13 | EKG ---
Date Performed: 08/05/2017 Time Performed: 23:11:13 PTAGE: 51 years EKG: Sinus rhythm VOLTAGE CRITERIA FOR LVH NONSPECIFIC T-WAVE ABNORMALITY ABNORMAL ECG NO PREVIOUS TRACING DOCTOR: Bradly Hilliard Interpretating Date/Time 08/06/2017 21:13:10
== END 2017-08-06 06:06 | disposition left against medical advice (07) | DRG 313 ==
LOC: PHED 23:04 → PHEDA 08-06 00:47
PROVIDERS: ADMIT Internal Medicine; ATTEND Internal Medicine
DX: R07.9 Chest pain, unspecified (principal); I47.2 Ventricular tachycardia; I10 Essential (primary) hypertension; R00.2 Palpitations; R61 Generalized hyperhidrosis; R11.0 Nausea; R06.02 Shortness of breath
CPT/HCPCS: 71046; 80048; 82550; 82552; 84484; 85025; 93005; 96374; 96375; 99285; J0282; J2270; J2405; J7030

== ENCOUNTER 2017-11-30 17:50 | Observation (INO) ==
[2017-11-30] MEDS ORDERED: Aspirin 325 MG Tablet PO ONE (18:16)
--- NOTE | 2017-11-30 18:21 | ED ---
HPI General Chief Complaint: Chest Pain Stated Complaint: SOB/Chest Pain [id number] Cardiac Hx Time Seen by Provider: 11/30/17 18:00 History of Present Illness HPI narrative: 52-year-old male presented ER for evaluation of chest pain. Chest pain is rated 4 out of 10 started when he was driving his car, mid chest, pressure-like, radiates to his left arm, associated with shortness of breath, nothing makes it better. He has no fever or chills there is no cough. Patient has history of elevated blood pressure takes very per meal, he had a cardiac cath before and shows "artery spasm" that sometimes comes and goes and causes him symptoms. Patient has no neurological symptoms, no abdominal pain. He does not smoke or drink or do any drugs. Complete Quality Measures for STEMI Alert Patients Related Data Home Medications Medication Instructions Recorded Confirmed aspirin [Aspirin Low Dose] 81 mg PO DAILY 11/30/17 11/30/17 verapamil 180 mg PO HS 11/30/17 11/30/17 Allergies Allergy/AdvReac Type Severity Reaction Status Date / Time prednisone Allergy Mild rash Verified 11/30/17 19:06 Nitrate Analogues Allergy Unknown Hypotension Verified 11/30/17 19:06 amiodarone AdvReac Severe Tachycardia Verified 11/30/17 19:06 Review of Systems Except as stated in HPI: all other systems reviewed are negative [facility] Medical History Medical History Myocardial infarct (Acute) Prostate CA (Acute) Surgical History Surgical History History of cholecystectomy (Acute) Social History Social History Substance History: No History of Abuse Second Hand Smoke Exposure: No Smoking Status: Never smoker How Often Do You Have a Drink Containing Alcohol: Never Recent Travel in [facility] within the Last 8 Weeks: No Recent Out of Country Travel within the Last 8 Weeks: No Exam Narrative Exam Narrative: GENERAL: Alert oriented 3 no acute distress. SKIN: Focused skin assessment warm/dry. HEAD: Atraumatic. Normocephalic. EYES: Pupils equal and round. No scleral icterus. No injection or drainage. ENT: No nasal bleeding or discharge. Mucous membranes pink and moist. NECK: Trachea midline. No JVD. CARDIOVASCULAR: Regular rate and rhythm. No murmur appreciated. RESPIRATORY: No accessory muscle use. Clear to auscultation. Breath sounds equal bilaterally. GASTROINTESTINAL: Abdomen soft, non-tender, nondistended. Hepatic and splenic margins not palpable. MUSCULOSKELETAL: No obvious deformities. No clubbing. No cyanosis. No edema. NEUROLOGICAL: Awake and alert. No obvious cranial nerve deficits. Motor grossly within normal limits. Normal speech. PSYCHIATRIC: Appropriate mood and affect; insight and judgment normal. Course Initial Documented Vital Signs Temperature 98 F 11/30/17 18:36 Pulse Rate 68 11/30/17 18:36 Respiratory Rate 18 11/30/17 18:36 Blood Pressure 139/80 11/30/17 18:36 Pulse Oximetry 98 11/30/17 18:36 Last Documented Vital Signs Temperature 98 F 11/30/17 18:36 Pulse Rate 80 11/30/17 19:55 Respiratory Rate 16 11/30/17 19:59 Blood Pressure 139/80 11/30/17 19:55 Pulse Oximetry 99 11/30/17 19:55 Sign Out Sign Out Data: Patient Sign Out occurred on 11/30/17 at 19:06. Patient's care was discussed, and care was transferred from Eddie Simmons MD to Diallo Razo MD. Sign Out Comment: Chest pain, pending labs & CXR Last updated by Eddie Simmons MD at 11/30/17 19:00 Post-Handoff Eval: Please refer to Dr. Hammond's note. The patient today has a non-specific workup with hx of coronary artery spasms diagnosed on cath. Prior records reveal possible LAD disease per nuclear medicine study. Pt has follow up in [place] with [facility]. Pt prefers to stay for chest pain center evaluation which is considered reasonable in this scenario. case d/w Dr Bains for hospitalist service. Medical Decision Making [facility] Narrative Medical decision making narrative: 52-year-old male here for evaluation of chest pain. History of hypertension, EKG shows no ST segment elevation or depression. Vitals are stable. Patient was given morphine IV, he took aspirin at home, pending labs, will sign out to Dr. Razo next shift. Please refer to the outgoing doctor's note. The patient has chest pain. He has a history of coronary vasospasm diagnosed on cardiac cath. Evidently one prior nuclear medicine stress test showed reversible ischemia in the LAD distribution and patient was considered low risk at that point. Lab Data Lab results reviewed: Yes I reviewed the patient's lab results. Result diagrams: 11/30/17 18:30 11/30/17 18:30 Lab Results 11/30/17 11/30/17 11/30/17 Range/Units 18:30 18:30 18:30 CBC w Diff Auto diff final WBC 7.2 (4.0-11.0) th/mm3 RBC 4.47 L (4.50-5.90) mil/mm3 Hgb 12.0 L (13.0-17.0) gm/dL Hct 37.1 L (39.0-51.0) % MCV 82.9 (80.0-100.0) fL MCH 26.8 L (27.0-34.0) pg MCHC 32.3 (32.0-36.0) % RDW 15.3 (11.6-17.2) % Plt Count 364 (150-450) th/mm3 MPV 8.0 (7.0-11.0) fL Neut % (Auto) 49.5 (16.0-70.0) % Lymph % (Auto) 37.8 (9.0-44.0) % [place] % (Auto) 8.3 H (0.0-8.0) % Eos % (Auto) 2.4 (0.0-4.0) % Baso % (Auto) 2.0 (0.0-2.0) % Neut # (Auto) 3.6 (1.8-7.7) th/mm3 Lymph # (Auto) 2.7 (1.0-4.8) th/mm3 [place] # (Auto) 0.6 (0.0-0.9) th/mm3 Eos # (Auto) 0.2 (0.0-0.4) th/mm3 Baso # (Auto) 0.1 (0.0-0.2) th/mm3 WBC Differential . PT 11.3 (9.8-11.6) sec INR 1.1 Ratio APTT 27.7 (24.3-30.1) sec D-Dimer Quant (PE/DVT) 0.61 H (0.00-0.50) mg/L FEU Sodium 139 (136-145) meq/L Potassium 3.9 (3.5-5.1) meq/L Chloride 107 (98-107) meq/L Carbon Dioxide 23.8 (21.0-32.0) meq/L Anion Gap 8 (5-15) meq/L BUN 14 (7-18) mg/dL Creatinine 0.86 (0.60-1.30) mg/dL Estimated GFR Greater than 89 (>89) mL/min Random Glucose 91 (74-106) mg/dL Calcium 8.7 (8.5-10.1) mg/dL Total Bilirubin 0.3 (0.2-1.0) mg/dL AST 24 (15-37) U/L ALT 37 (12-78) U/L Alkaline Phosphatase 64 (45-117) U/L Total Creatine Kinase 154 (39-308) U/L CK-MB (CK-2) Less than 0.5 L (0.5-3.6) ng/mL Troponin I Less than 0.02 L (0.02-0.05) ng/mL B-Natriuretic Peptide (0-100) pg/mL Total Protein 7.9 (6.4-8.2) g/dL Albumin 3.5 (3.4-5.0) g/dL Lipase 118 (73-393) U/L 11/30/17 Range/Units 18:30 CBC w Diff WBC (4.0-11.0) th/mm3 RBC (4.50-5.90) mil/mm3 Hgb (13.0-17.0) gm/dL Hct (39.0-51.0) % MCV (80.0-100.0) fL MCH (27.0-34.0) pg MCHC (32.0-36.0) % RDW (11.6-17.2) % Plt Count (150-450) th/mm3 MPV (7.0-11.0) fL Neut % (Auto) (16.0-70.0) % Lymph % (Auto) (9.0-44.0) % [place] % (Auto) (0.0-8.0) % Eos % (Auto) (0.0-4.0) % Baso % (Auto) (0.0-2.0) % Neut # (Auto) (1.8-7.7) th/mm3 Lymph # (Auto) (1.0-4.8) th/mm3 [place] # (Auto) (0.0-0.9) th/mm3 Eos # (Auto) (0.0-0.4) th/mm3 Baso # (Auto) (0.0-0.2) th/mm3 WBC Differential PT (9.8-11.6) sec INR Ratio APTT (24.3-30.1) sec D-Dimer Quant (PE/DVT) (0.00-0.50) mg/L FEU Sodium (136-145) meq/L Potassium (3.5-5.1) meq/L Chloride (98-107) meq/L Carbon Dioxide (21.0-32.0) meq/L Anion Gap (5-15) meq/L BUN (7-18) mg/dL Creatinine (0.60-1.30) mg/dL Estimated GFR (>89) mL/min Random Glucose (74-106) mg/dL Calcium (8.5-10.1) mg/dL Total Bilirubin (0.2-1.0) mg/dL AST (15-37) U/L ALT (12-78) U/L Alkaline Phosphatase (45-117) U/L Total Creatine Kinase (39-308) U/L CK-MB (CK-2) (0.5-3.6) ng/mL Troponin I (0.02-0.05) ng/mL B-Natriuretic Peptide 9 (0-100) pg/mL Total Protein (6.4-8.2) g/dL Albumin (3.4-5.0) g/dL Lipase (73-393) U/L Imaging Data Radiologist's impression: ITS Impressions Chest CT 11/30/17 20:05 CONCLUSION: 1. Negative CT scan of the chest with contrast. 2. I do not see major vessel pulmonary embolism. Second third order branch emboli cannot be entirely excluded. And Discharge Plan Discharge Disposition Patient Disposition: 30 Still Patient Physicians Team ED Provider: Diallo Razo Primary Care Provider: [facility],Physician 's Rxs /Orders / Referrals /Forms Prescriptions: No Action aspirin [Aspirin Low Dose] 81 mg Tablet,Delayed Release (Dr/Ec) 81 mg PO DAILY RF: 0 verapamil 180 mg Capsule,Ext Rel. Pellets 24 Hr 180 mg PO HS RF: 0 Discharge Instructions Patient Printed Instructions: Chest Pain (ED) Discharge Interventions Interventions: Vital Signs Last Done: 11/30/17 19:55 Status ED Status: With Doctor
[2017-11-30] MEDS ORDERED: Morphine Sulfate Inj 2 MG/ML Vial IV.PUSH ONE (18:38)
[2017-11-30 18:58] LABS: Chloride 107 meq/L (98-107); Potassium 3.9 meq/L (3.5-5.1); Sodium 139 meq/L (136-145)
[2017-11-30 19:02] LABS: Albumin 3.5 g/dL (3.4-5.0); Calcium 8.7 mg/dL (8.5-10.1)
[2017-11-30 19:03] LABS: Anion Gap 8 meq/L (5-15); Blood Urea Nitrogen 14 mg/dL (7-18); Carbon Dioxide 23.8 meq/L (21.0-32.0); Glucose,Random 91 mg/dL (74-106); Lipase 118 U/L (73-393)
[2017-11-30 19:05] LABS: Alanine Aminotransferase 37 U/L (12-78); Aspartate Aminotransferase 24 U/L (15-37)
[2017-11-30 19:06] LABS: Glomerular Filtration Rate Greater Than 89 mL/min (>89)
[2017-11-30 19:07] LABS: Activated Partial Thrombo Time 27.7 sec (24.3-30.1); INR 1.1 Ratio; Prothrombin Time 11.3 sec (9.8-11.6); Total Protein 7.9 g/dL (6.4-8.2)
[2017-11-30 19:08] LABS: Alkaline Phosphatase 64 U/L (45-117); Creatine Kinase 154 U/L (39-308)
[2017-11-30 19:24] LABS: D-Dimer 0.61 mg/L FEU (0.00-0.50)
[2017-11-30 19:27] LABS: Baso # (Auto) 0.1 th/mm3 (0.0-0.2); Eos # (Auto) 0.2 th/mm3 (0.0-0.4); Eos % (Auto) 2.4 % (0.0-4.0); Hematocrit 37.1 % (39.0-51.0); Lymph # (Auto) 2.7 th/mm3 (1.0-4.8); Lymph % (Auto) 37.8 % (9.0-44.0); Mean Corpuscular HGB Conc 32.3 % (32.0-36.0); Mean Corpuscular Hemoglobin 26.8 pg (27.0-34.0); Mean Corpuscular Volume 82.9 fL (80.0-100.0); Mono # (Auto) 0.6 th/mm3 (0.0-0.9); Mono % (Auto) 8.3 % (0.0-8.0); Neut # (Auto) 3.6 th/mm3 (1.8-7.7); Neut % (Auto) 49.5 % (16.0-70.0); Platelet Count 364 th/mm3 (150-450); Red Blood Count 4.47 mil/mm3 (4.50-5.90); Red Cell Distribution Width 15.3 % (11.6-17.2); White Blood Count 7.2 th/mm3 (4.0-11.0)
[2017-11-30] MEDS ORDERED: Morphine Inj 4 MG/ML Vial IV.PUSH ONE (23:09)
[2017-11-30 23:19] LABS: Bilirubin,Urine Negative (Negative); Clarity,Urine Clear (Clear); Color,Urine Yellow (Yellw/Straw); Glucose,Urine (UA) Negative (Negative); Leukocyte Esterase,Urine Negative (Negative); Nitrite,Urine Negative (Negative); PH,Urine 6.5 (5.0-8.5); Urobilinogen,Urine 0.2 mg/dL (Less than 2)
[2017-11-30 23:23] LABS: RBC,Urine 0-3 /hpf (0-3); Squamous Epithelial Cell,Urine 0-5 /hpf (0-5); WBC,Urine 0-5 /hpf (0-5)
[2017-11-30 23:37] LABS: Creatine Kinase 140 U/L (39-308)
[2017-12-01 02:56] LABS: Creatine Kinase 138 U/L (39-308)
[2017-12-01] MEDS ORDERED: Morphine Inj 4 MG/ML Vial IV.PUSH PRN (04:15)
--- NOTE | 2017-12-01 04:55 | ED ---
HPI General Chief Complaint: Chest Pain Stated Complaint: SOB/Chest Pain [id number] Cardiac Hx Time Seen by Provider: 11/30/17 18:00 Related Data Home Medications Medication Instructions Recorded Confirmed aspirin [Aspirin Low Dose] 81 mg PO DAILY 11/30/17 11/30/17 verapamil 180 mg PO HS 11/30/17 11/30/17 Allergies Allergy/AdvReac Type Severity Reaction Status Date / Time prednisone Allergy Mild rash Verified 11/30/17 19:06 Nitrate Analogues Allergy Unknown Hypotension Verified 11/30/17 19:06 amiodarone AdvReac Severe Tachycardia Verified 11/30/17 19:06 [facility] Medical History Medical History Myocardial infarct (Acute) Prostate CA (Acute) Surgical History Surgical History History of cholecystectomy (Acute) Social History Social History Substance History: No History of Abuse Second Hand Smoke Exposure: No Smoking Status: Never smoker How Often Do You Have a Drink Containing Alcohol: Never Recent Travel in [facility] within the Last 8 Weeks: No Recent Out of Country Travel within the Last 8 Weeks: No Immunization History Tetanus Immunization: <5 Years Hx Influenza Vaccine This Season: Yes Course Initial Documented Vital Signs Temperature 98 F 11/30/17 18:36 Pulse Rate 68 11/30/17 18:36 Respiratory Rate 18 11/30/17 18:36 Blood Pressure 139/80 11/30/17 18:36 Pulse Oximetry 98 11/30/17 18:36 Last Documented Vital Signs Temperature 96.5 F L 12/01/17 00:42 Pulse Rate 55 L 12/01/17 00:42 Respiratory Rate 18 12/01/17 00:42 Blood Pressure 152/95 H 12/01/17 00:42 Pulse Oximetry 98 12/01/17 00:42 Sign Out Sign Out Data: Patient Sign Out occurred on 11/30/17 at 19:06. Patient's care was discussed, and care was transferred from Eddie Simmons MD to Diallo Razo MD. Sign Out Comment: Chest pain, pending labs & CXR Last updated by Eddie Simmons MD at 11/30/17 19:00 Post-Handoff Eval: Please refer to Dr. Hammond's note. The patient today has a non-specific workup with hx of coronary artery spasms diagnosed on cath. Prior records reveal possible LAD disease per nuclear medicine study. Pt has follow up in [place] with [facility]. Pt prefers to stay for chest pain center evaluation which is considered reasonable in this scenario. case d/w Dr Bains for hospitalist service. Medical Decision Making Lab Data Result diagrams: 11/30/17 18:30 11/30/17 18:30 Lab Results 11/30/17 11/30/17 11/30/17 Range/Units 18:30 18:30 18:30 CBC w Diff Auto diff final WBC 7.2 (4.0-11.0) th/mm3 RBC 4.47 L (4.50-5.90) mil/mm3 Hgb 12.0 L (13.0-17.0) gm/dL Hct 37.1 L (39.0-51.0) % MCV 82.9 (80.0-100.0) fL MCH 26.8 L (27.0-34.0) pg MCHC 32.3 (32.0-36.0) % RDW 15.3 (11.6-17.2) % Plt Count 364 (150-450) th/mm3 MPV 8.0 (7.0-11.0) fL Neut % (Auto) 49.5 (16.0-70.0) % Lymph % (Auto) 37.8 (9.0-44.0) % [place] % (Auto) 8.3 H (0.0-8.0) % Eos % (Auto) 2.4 (0.0-4.0) % Baso % (Auto) 2.0 (0.0-2.0) % Neut # (Auto) 3.6 (1.8-7.7) th/mm3 Lymph # (Auto) 2.7 (1.0-4.8) th/mm3 Ogle # (Auto) 0.6 (0.0-0.9) th/mm3 Eos # (Auto) 0.2 (0.0-0.4) th/mm3 Baso # (Auto) 0.1 (0.0-0.2) th/mm3 WBC Differential . PT 11.3 (9.8-11.6) sec INR 1.1 Ratio APTT 27.7 (24.3-30.1) sec D-Dimer Quant (PE/DVT) 0.61 H (0.00-0.50) mg/L FEU Sodium 139 (136-145) meq/L Potassium 3.9 (3.5-5.1) meq/L Chloride 107 (98-107) meq/L Carbon Dioxide 23.8 (21.0-32.0) meq/L Anion Gap 8 (5-15) meq/L BUN 14 (7-18) mg/dL Creatinine 0.86 (0.60-1.30) mg/dL Estimated GFR Greater than 89 (>89) mL/min Random Glucose 91 (74-106) mg/dL Calcium 8.7 (8.5-10.1) mg/dL Total Bilirubin 0.3 (0.2-1.0) mg/dL AST 24 (15-37) U/L ALT 37 (12-78) U/L Alkaline Phosphatase 64 (45-117) U/L Total Creatine Kinase 154 (39-308) U/L CK-MB (CK-2) Less than 0.5 L (0.5-3.6) ng/mL Troponin I Less than 0.02 L (0.02-0.05) ng/mL B-Natriuretic Peptide (0-100) pg/mL Total Protein 7.9 (6.4-8.2) g/dL Albumin 3.5 (3.4-5.0) g/dL Lipase 118 (73-393) U/L Urine Color (Yellw/Straw) Urine Clarity (Clear) Urine pH (5.0-8.5) Ur Specific [place] (1.002-1.035) Urine Protein (Neg-Trace) mg/dL Urine Glucose (UA) (Negative) mg/dL Urine Ketones (Negative) mg/dL Urine Occult Blood (Negative) Urine Nitrate (Negative) Urine Bilirubin (Negative) Urine Urobilinogen (Less than 2) mg/dL Ur Leukocyte Esterase (Negative) Urine RBC (0-3) /hpf Urine WBC (0-5) /hpf Ur Squamous Epith Cells (0-5) /hpf Micro UA Comment Urine Culture Comments 11/30/17 11/30/17 11/30/17 Range/Units 18:30 23:05 23:05 CBC w Diff WBC (4.0-11.0) th/mm3 RBC (4.50-5.90) mil/mm3 Hgb (13.0-17.0) gm/dL Hct (39.0-51.0) % MCV (80.0-100.0) fL MCH (27.0-34.0) pg MCHC (32.0-36.0) % RDW (11.6-17.2) % Plt Count (150-450) th/mm3 MPV (7.0-11.0) fL Neut % (Auto) (16.0-70.0) % Lymph % (Auto) (9.0-44.0) % Ogle % (Auto) (0.0-8.0) % Eos % (Auto) (0.0-4.0) % Baso % (Auto) (0.0-2.0) % Neut # (Auto) (1.8-7.7) th/mm3 Lymph # (Auto) (1.0-4.8) th/mm3 Ogle # (Auto) (0.0-0.9) th/mm3 Eos # (Auto) (0.0-0.4) th/mm3 Baso # (Auto) (0.0-0.2) th/mm3 WBC Differential PT (9.8-11.6) sec INR Ratio APTT (24.3-30.1) sec D-Dimer Quant (PE/DVT) (0.00-0.50) mg/L FEU Sodium (136-145) meq/L Potassium (3.5-5.1) meq/L Chloride (98-107) meq/L Carbon Dioxide (21.0-32.0) meq/L Anion Gap (5-15) meq/L BUN (7-18) mg/dL Creatinine (0.60-1.30) mg/dL Estimated GFR (>89) mL/min Random Glucose (74-106) mg/dL Calcium (8.5-10.1) mg/dL Total Bilirubin (0.2-1.0) mg/dL AST (15-37) U/L ALT (12-78) U/L Alkaline Phosphatase (45-117) U/L Total Creatine Kinase 140 (39-308) U/L CK-MB (CK-2) (0.5-3.6) ng/mL Troponin I Less than 0.02 L (0.02-0.05) ng/mL B-Natriuretic Peptide 9 (0-100) pg/mL Total Protein (6.4-8.2) g/dL Albumin (3.4-5.0) g/dL Lipase (73-393) U/L Urine Color Yellow (Yellw/Straw) Urine Clarity Clear (Clear) Urine pH 6.5 (5.0-8.5) Ur Specific [place] 1.020 (1.002-1.035) Urine Protein Trace (Neg-Trace) mg/dL Urine Glucose (UA) Negative (Negative) mg/dL Urine Ketones Negative (Negative) mg/dL Urine Occult Blood Negative (Negative) Urine Nitrate Negative (Negative) Urine Bilirubin Negative (Negative) Urine Urobilinogen 0.2 (Less than 2) mg/dL Ur Leukocyte Esterase Negative (Negative) Urine RBC 0-3 (0-3) /hpf Urine WBC 0-5 (0-5) /hpf Ur Squamous Epith Cells 0-5 (0-5) /hpf Micro UA Comment Culture not ind Urine Culture Comments Culture not ind 12/01/17 Range/Units 02:30 CBC w Diff WBC (4.0-11.0) th/mm3 RBC (4.50-5.90) mil/mm3 Hgb (13.0-17.0) gm/dL Hct (39.0-51.0) % MCV (80.0-100.0) fL MCH (27.0-34.0) pg MCHC (32.0-36.0) % RDW (11.6-17.2) % Plt Count (150-450) th/mm3 MPV (7.0-11.0) fL Neut % (Auto) (16.0-70.0) % Lymph % (Auto) (9.0-44.0) % Ogle % (Auto) (0.0-8.0) % Eos % (Auto) (0.0-4.0) % Baso % (Auto) (0.0-2.0) % Neut # (Auto) (1.8-7.7) th/mm3 Lymph # (Auto) (1.0-4.8) th/mm3 [place]gle # (Auto) (0.0-0.9) th/mm3 Eos # (Auto) (0.0-0.4) th/mm3 Baso # (Auto) (0.0-0.2) th/mm3 WBC Differential PT (9.8-11.6) sec INR Ratio APTT (24.3-30.1) sec D-Dimer Quant (PE/DVT) (0.00-0.50) mg/L FEU Sodium (136-145) meq/L Potassium (3.5-5.1) meq/L Chloride (98-107) meq/L Carbon Dioxide (21.0-32.0) meq/L Anion Gap (5-15) meq/L BUN (7-18) mg/dL Creatinine (0.60-1.30) mg/dL Estimated GFR (>89) mL/min Random Glucose (74-106) mg/dL Calcium (8.5-10.1) mg/dL Total Bilirubin (0.2-1.0) mg/dL AST (15-37) U/L ALT (12-78) U/L Alkaline Phosphatase (45-117) U/L Total Creatine Kinase 138 (39-308) U/L CK-MB (CK-2) (0.5-3.6) ng/mL Troponin I Less than 0.02 L (0.02-0.05) ng/mL B-Natriuretic Peptide (0-100) pg/mL Total Protein (6.4-8.2) g/dL Albumin (3.4-5.0) g/dL Lipase (73-393) U/L Urine Color (Yellw/Straw) Urine Clarity (Clear) Urine pH (5.0-8.5) Ur Specific [place] (1.002-1.035) Urine Protein (Neg-Trace) mg/dL Urine Glucose (UA) (Negative) mg/dL Urine Ketones (Negative) mg/dL Urine Occult Blood (Negative) Urine Nitrate (Negative) Urine Bilirubin (Negative) Urine Urobilinogen (Less than 2) mg/dL Ur Leukocyte Esterase (Negative) Urine RBC (0-3) /hpf Urine WBC (0-5) /hpf Ur Squamous Epith Cells (0-5) /hpf Micro UA Comment Urine Culture Comments Imaging Data Radiologist's impression: ITS Impressions Chest CT 11/30/17 20:05 CONCLUSION: 1. Negative CT scan of the chest with contrast. 2. I do not see major vessel pulmonary embolism. Second third order branch emboli cannot be entirely excluded. And Discharge Plan Discharge Disposition Patient Disposition: 30 Still Patient Discharge Condition Condition: Stable Physicians Team ED Provider: Diallo Razo Primary Care Provider: [facility]ician [facility] Attending Provider: Boo Bains Status ED Status: Left Department Discharge Information Discharge Date/Time: 12/01/17 00:28
--- NOTE | 2017-12-01 09:35 | P.HPIM ---
History of Present Illness Primary Care Physician: [facility] Chief Complaint: Chest pain History of Present Illness: 52-year-old male with known history of hypertension, prostate cancer who presented to the emergency department for evaluation chest pain. Patient states that approximately 1700 yesterday evening while he is driving home he developed a tightness sensation in his middle part of his chest with associated nausea and pain rating down his left arm. Patient came to emergency department for evaluation. Patient states that the pain lasted for an hour. Patient was given morphine with resolution of his pain. Patient is followed by the [facility]. 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 He states that he has had a nuclear stress test done in April,. Patient has not had any recurrence of discomfort since being in on the medical floor. Because of the patient's risk factors and presenting symptoms is recommended by the ER physician that the patient be observed in the chest pain center for further evaluation and management. Patient has contacted his meat cutting teacher who indicated that he does not require any stress testing. Recommend following up in his office in 1 week. States that it is possibly due to change in his medications. - Diagnosis (1) Chest pain - Inpatient Certification Estimated Total Length of Stay (Days): 1 Plans for Post Hospital Care: Home Review of Systems All other systems reviewed negative except as stated in HPI Cardiovascular: Reports chest pain Gastrointestinal: Reports nausea Musculoskeletal: Reports tingling PMFSH - History History Provided By: Patient - Medical History Medical History: Medical History (Last Reviewed 12/01/17 @ 09:22 by SUPA Ga) Hypertension Prostate CA - Surgical History Surgical History: Surgical History (Last Updated 11/30/17 @ 18:55 by Naima Whitfield) History of cholecystectomy - Family History Family History: Family History (Last Updated 12/01/17 @ 09:13 by SUPA Ga) Mother Family history of cancer - Tobacco History Second Hand Smoke Exposure: No Smoking Status: Never smoker - Alcohol History How Often Do You Have a Drink Containing Alcohol: Monthly or less (Twice annually) - Substance Use History Substance History: No History of Abuse - Travel History Recent Travel in the [place] Within the Last 8 Weeks: No Recent Travel Out of the Country Within the Last 8 Weeks: No - Immunization History Tetanus Immunization: <5 Years Hx Influenza Vaccine This Season: Yes Medications and Allergies Active Medications: Active Medications Morphine Sulfate (Morphine Inj) 2 mg IV.PUSH Q3H PRN PRN Reason: CHEST PAIN Last Admin: 12/01/17 04:23 Dose: 2 mg Sodium Chloride (Ns Flush) 2 ml IV.FLUSH BID CALVIN Last Admin: 12/01/17 08:18 Dose: 2 ml Sodium Chloride (Ns Flush) 2 ml IV.FLUSH PRN PRN PRN Reason: FLUSH AFTER USING IV ACCESS Allergies Allergy/AdvReac Type Severity Reaction Status Date / Time prednisone Allergy Mild rash Verified 11/30/17 19:06 Nitrate Analogues Allergy Unknown Hypotension Verified 11/30/17 19:06 amiodarone AdvReac Severe Tachycardia Verified 11/30/17 19:06 Home Medications Medication Instructions Recorded Confirmed Type aspirin [Aspirin Low Dose] 81 mg PO DAILY 11/30/17 11/30/17 History verapamil 180 mg PO HS 11/30/17 11/30/17 History tadalafil [Cialis] 5 mg PO DAILY 12/01/17 12/01/17 History Exam Vital signs: Vital Signs 11/30/17 18:36 11/30/17 19:55 11/30/17 19:59 Temperature 98 F Pulse Rate 68 80 Respiratory Rate 18 16 16 Blood Pressure 139/80 139/80 Pulse Oximetry 98 99 11/30/17 22:45 12/01/17 00:42 12/01/17 01:35 Temperature 96.5 F L Pulse Rate 66 55 L Respiratory Rate 16 18 Blood Pressure 152/95 H Pulse Oximetry 98 98 96 12/01/17 04:00 12/01/17 08:00 12/01/17 08:26 Temperature 96.1 F L 96.6 F L Pulse Rate 63 68 62 Respiratory Rate 18 17 Blood Pressure 126/79 108/60 Pulse Oximetry 97 99 Intake & Output 11/30/17 12/01/17 12/01/17 18:59 06:59 18:59 Weight 95 kg 97.3 kg Other: # Voids 2 # Incontinent Voids 0 # Urine Diapers 0 Weight On Admission 97.3 kg Narrative: GENERAL: Well-developed, well-nourished, in no acute distress. alert and orientated HEENT: Head is normocephalic without any lesions or masses noted. Facial features are symmetric. Eyes: Pupils equal round reactive to light. Extraocular muscles are intact. Conjunctivae were clear. Oropharyngeal: Pharynx without any erythema edema. Tongue is midline without deviation. Buccal mucosa is moist without any masses or lesions NECK: Supple without any masses. Trachea midline no deviation. No JVD, no bruits are appreciated CARDIAC: Regular rhythm, regular rate. S1/S2 are heard. No murmurs gallops or rubs. LUNGS: Clear to auscultation bilaterally. No wheeze, rhonchi or rales. No use of accessory muscles on inspiration or expiration. ABDOMEN: Soft, nontender. Nondistended. Bowel sounds heard in all 4 quadrants. No organomegaly or masses. Negative rebound, negative guarding EXTREMITIES: No edema, pulses are equal bilaterally. No cyanosis or clubbing NEUROLOGY: Mood and affect appear appropriate. Cranial nerves II through XII grossly intact. Muscle strength 5/5 in upper and lower extremities bilaterally. Deep tendon reflexes are 2+ in upper and lower extremities bilaterally. Results - Labs CBC & Chem 7: 11/30/17 18:30 11/30/17 18:30 Labs: Short CBC 11/30/17 Range/Units 18:30 WBC 7.2 (4.0-11.0) th/mm3 Hgb 12.0 L (13.0-17.0) gm/dL Hct 37.1 L (39.0-51.0) % Plt Count 364 (150-450) th/mm3 BMP 11/30/17 18:30 Sodium 139 Potassium 3.9 Chloride 107 Carbon Dioxide 23.8 BUN 14 Creatinine 0.86 Calcium 8.7 Cardiac Enzymes 11/30/17 11/30/17 12/01/17 Range/Units 18:30 23:05 02:30 Total Creatine Kinase 154 140 138 (39-308) U/L CK-MB (CK-2) Less than 0.5 L (0.5-3.6) ng/mL Troponin I Less than 0.02 L Less than 0.02 L Less than 0.02 L (0.02-0.05) ng/mL Liver Function 11/30/17 Range/Units 18:30 Total Bilirubin 0.3 (0.2-1.0) mg/dL AST 24 (15-37) U/L ALT 37 (12-78) U/L Alkaline Phosphatase 64 (45-117) U/L Albumin 3.5 (3.4-5.0) g/dL Urine 11/30/17 Range/Units 23:05 Urine Color Yellow (Yellw/Straw) Urine Clarity Clear (Clear) Urine pH 6.5 (5.0-8.5) Ur Specific Wheatley 1.020 (1.002-1.035) Urine Protein Trace (Neg-Trace) mg/dL Urine Glucose (UA) Negative (Negative) mg/dL - Imaging Impressions Chest CT 11/30/17 20:05 CONCLUSION: 1. Negative CT scan of the chest with contrast. 2. I do not see major vessel pulmonary embolism. Second third order branch emboli cannot be entirely excluded. And Caprini VTE Risk Assessment Caprini VTE Risk Assessment: No/Low Risk (score <= 1) Caprini Risk Assessment Model: Point Value = 1 Point Value = 2 Point Value = 3 Point Value = 5 Age 41-60 Minor surgery BMI > 25 kg/m2 Swollen legs Varicose veins or History of unexplained or recurrent spontaneous Oral contraceptives or hormone replacement Sepsis (< 1 month) Serious lung disease, including pneumonia (< 1 month) Abnormal pulmonary function Acute myocardial infarction Congestive heart failure (< 1 month) History of inflammatory bowel disease Medical patient at bed rest Age 61-74 Arthroscopic surgery Major open surgery (> 45 min) Laparoscopic surgery (> 45 min) Malignancy Confined to bed (> 72 hours) Immobilizing plaster cast Central venous access Age >= 75 History of VTE Family history of VTE Factor V Leiden Prothrombin [id number] Lupus anticoagulant Anticardiolipin antibodies Elevated serum homocysteine Heparin-induced thrombocytopenia Other congenital or acquired thrombophilia Stroke (< 1 month) Elective arthroplasty Hip, pelvis, or leg fracture Acute spinal cord injury (< 1 month) Prophylaxis Regimen: Total Risk Factor Score Risk Level Prophylaxis Regimen 0-1 Low Early ambulation 2 Moderate Order ONE of the following: *Sequential Compression Device (SCD) *Heparin 5000 units SQ BID 3-4 Higher Order ONE of the following medications: *Heparin 5000 units SQ TID *Enoxaparin/Lovenox 40 mg SQ daily (WT < 150 kg, CrCl > 30 mL/min) *Enoxaparin/Lovenox 30 mg SQ daily (WT < 150 kg, CrCl > 10-29 mL/min) *Enoxaparin/Lovenox 30 mg SQ BID (WT < 150 kg, CrCl > 30 mL/min) AND/OR *Sequential Compression Device (SCD) 5 or more Highest Order ONE of the following medications: *Heparin 5000 units SQ TID (Preferred with Epidurals) *Enoxaparin/Lovenox 40 mg SQ daily (WT < 150 kg, CrCl > 30 mL/min) *Enoxaparin/Lovenox 30 mg SQ daily (WT < 150 kg, CrCl > 10-29 mL/min) *Enoxaparin/Lovenox 30 mg SQ BID (WT < 150 kg, CrCl > 30 mL/min) AND *Sequential Compression Device (SCD) Assessment and Plan - Assessment (1) Chest pain Code(s): R07.9 - Chest pain, unspecified Status: Acute Onset Date: ~ - Plan Chest pain, precordial, atypical -Patient with increased risk factors include age, male, hypertension -Patient has been ruled out for acute coronary event with serial cardiac enzymes and remained negative, serial EKGs that were reviewed by myself shows sinus rhythm without any changes -Patient has had recent cardiac stress testing done in April 2017. Patient states that he underwent myocardial perfusion study which was unremarkable -Patient states that he spoke with his [employer] meat cutting teacher to indicated that he did not need a stress test. They believe that his discomfort may have been due to recent medication change. Exhaust Tender recommend the patient follow-up in his office within the next week to do further evaluation and management. -Patient is deferring any further testing at this time. He wants to follow-up with his [employer] meat cutting teacher. I discussed with the patient that there is been any indication cardiac injury secondary to negative cardiac enzymes, and EKGs were unchanged. I emphasized to the patient his need to follow-up with his meat cutting teacher. -Patient was admitted with aspirin, morphine as needed for pain Hypertension -Home medications were continued DVT prevention -Low risk, early ambulation Discharge Planning: Discharge home in stable condition Activity: Ad henry. Diet: Healthy heart diet Medication per medication reconciliation Follow-up with primary medical doctor in 1 week H&P: Quality - VTE Deep Vein Thrombosis/Pulmonary Embolism Present on Admission: No (1) Chest pain Qualifiers: Chest pain type: precordial pain Qualified Code(s): R07.2 - Precordial pain
--- NOTE | 2017-12-01 11:58 | ECG ---
Date Performed: 11/30/2017 Time Performed: 18:07:10 PTAGE: 52 years EKG: Sinus rhythm VOLTAGE CRITERIA FOR LVH ABNORMAL ECG PREVIOUS TRACING : 08/06/2017 04.04 Since the previous tracing, no significant change noted DOCTOR: Nixon Gardner Interpretating Date/Time 12/01/2017 11:57:32
--- NOTE | 2017-12-01 11:59 | ECG ---
Date Performed: 12/01/2017 Time Performed: 01:37:13 PTAGE: 52 years EKG: SINUS BRADYCARDIA MODERATE VOLTAGE CRITERIA FOR LVH, CONSIDER NORMAL VARIANT BORDERLINE ECG PREVIOUS TRACING : 11/30/2017 18.07 Since the previous tracing, no significant change noted DOCTOR: Nixon Gardner Interpretating Date/Time 12/01/2017 11:57:43
== END 2017-12-01 10:24 | disposition home or self-care (01) ==
LOC: PHEDA 17:50 → PH3 17:50 → PHED 17:50 → PH3 12-01 00:15
PROVIDERS: ADMIT Hospitalist; ATTEND Hospitalist

== ENCOUNTER 2018-03-25 15:09 | Observation (INO) ==
--- NOTE | 2018-03-25 15:53 | ED ---
HPI General Chief Complaint: Chest Pain Stated Complaint: Chest Pain x45Min Time Seen by Provider: 03/25/18 15:20 History of Present Illness HPI narrative: This patient complains of chest pain. Started 1 hour ago. It comes and goes and last several minutes and resolves. [facility]. He has history of A. fib and takes a baby aspirin daily for that. No history of stent placement or HI. He reports that [facility] he is not entirely sure what it showed but Does not think there is any significant problem. Currently pain-free. Severity was moderate. No alleviating factors. No exacerbating factors. Related Data Home Medications Medication Instructions Recorded Confirmed aspirin [Aspirin Low Dose] 81 mg PO DAILY 11/30/17 03/25/18 tadalafil [Cialis] 5 mg PO DAILY 12/01/17 03/25/18 aspirin [Aspir-81] 162 mg PO ONCE 03/25/18 03/25/18 verapamil 240 mg PO HS 03/25/18 03/25/18 Allergies Allergy/AdvReac Type Severity Reaction Status Date / Time prednisone Allergy Mild rash Verified 11/30/17 19:06 Nitrate Analogues Allergy Unknown Hypotension Verified 11/30/17 19:06 amiodarone AdvReac Severe Tachycardia Verified 11/30/17 19:06 Review of Systems ROS: all other systems reviewed are negative [facility] Medical History Medical History Atrial fibrillation (Acute) Hypertension (Acute) Prostate CA (Acute) Surgical History Surgical History H/O cardiac catheterization (Acute) H/O prior ablation treatment (Acute) History of cholecystectomy (Acute) Family History Family History Mother Family history of cancer Social History Social History Substance History: No History of Abuse Second Hand Smoke Exposure: No Smoking Status: Former smoker How Often Do You Have a Drink Containing Alcohol: Never Recent Travel in [facility] within the Last 8 Weeks: No Recent Out of Country Travel within the Last 8 Weeks: No Exam Narrative Exam Narrative: GENERAL: Well-nourished, well-developed patient in no apparent distress. SKIN: Focused skin assessment reveals no rash and nodules. Skin is Warm and dry. HEAD: Atraumatic. Normocephalic. EYES: Pupils equal and round. No scleral icterus. No injection or drainage. ENT: No nasal bleeding or discharge. Mucous membranes pink and moist. NECK: Trachea midline. No JVD. CARDIOVASCULAR: Regular rate and rhythm. No murmur appreciated. RESPIRATORY: No accessory muscle use. Clear to auscultation. Breath sounds equal bilaterally. GASTROINTESTINAL: Abdomen soft, non-tender, nondistended. Hepatic and splenic margins not palpable. MUSCULOSKELETAL: No obvious deformities. No clubbing. No cyanosis. No edema. NEUROLOGICAL: Awake and alert. No obvious cranial nerve deficits. Motor grossly within normal limits. Normal speech. PSYCHIATRIC: Appropriate mood and affect; insight and judgment normal. Course Initial Documented Vital Signs Temperature 98.2 F 03/25/18 15:22 Pulse Rate 71 03/25/18 15:22 Respiratory Rate 20 03/25/18 15:22 Blood Pressure 166/101 H 03/25/18 15:22 Last Documented Vital Signs Temperature 98.2 F 03/25/18 15:22 Pulse Rate 72 03/25/18 15:41 Respiratory Rate 18 03/25/18 15:41 Blood Pressure 163/80 H 03/25/18 15:41 Pulse Oximetry 98 03/25/18 15:41 Medical Decision Making MDM Narrative Medical decision making narrative: This is a 52-year-old male with an hour of intermittent chest pain and pressure. I have initiated cardiac workup. He had aspirin prior to arrival Cardiac workup here is negative. He has history of hypertension and is a smoker. He will be a 23-hour observation on telemetry in the chest pain center to rule out cardiac cause of his symptoms. I have placed a call to the hospitalist to discuss. Medical Screen Exam Complete: Yes Emergency Medical Condition: Yes Differential Diagnosis Differential Diagnosis: Differential diagnosis includes HI, angina, pericarditis , pleurisy, GERD, anxiety. Medical Records Medical records reviewed: Yes I reviewed the patient's medical records. Lab Data Lab results reviewed: Yes I reviewed the patient's lab results. Lab results narrative: Cardiac enzymes are normal Result diagrams: 03/25/18 15:45 03/25/18 15:45 Lab Results 03/25/18 03/25/18 Range/Units 15:45 15:45 CBC w Diff Auto diff final WBC 6.7 (4.0-11.0) th/mm3 RBC 4.51 (4.50-5.90) mil/mm3 Hgb 12.5 L (13.0-17.0) gm/dL Hct 37.8 L (39.0-51.0) % MCV 83.8 (80.0-100.0) fL MCH 27.7 (27.0-34.0) pg MCHC 33.1 (32.0-36.0) % RDW 14.5 (11.6-17.2) % Plt Count 316 (150-450) th/mm3 MPV 7.9 (7.0-11.0) fL Neut % (Auto) 46.5 (16.0-70.0) % Lymph % (Auto) 41.3 (9.0-44.0) % Glenn % (Auto) 7.4 (0.0-8.0) % Eos % (Auto) 4.2 H (0.0-4.0) % Baso % (Auto) 0.6 (0.0-2.0) % Neut # (Auto) 3.1 (1.8-7.7) th/mm3 Lymph # (Auto) 2.8 (1.0-4.8) th/mm3 Glenn # (Auto) 0.5 (0.0-0.9) th/mm3 Eos # (Auto) 0.3 (0.0-0.4) th/mm3 Baso # (Auto) 0.0 (0.0-0.2) th/mm3 WBC Differential . Differential Comment . Sodium 139 (136-145) meq/L Potassium 3.3 L (3.5-5.1) meq/L Chloride 103 (98-107) meq/L Carbon Dioxide 27.0 (21.0-32.0) meq/L Anion Gap 9 (5-15) meq/L BUN 12 (7-18) mg/dL Creatinine 0.84 (0.60-1.30) mg/dL Estimated GFR Greater than 89 (>89) mL/min Random Glucose 110 H (74-106) mg/dL Calcium 8.7 (8.5-10.1) mg/dL Total Bilirubin 0.4 (0.2-1.0) mg/dL AST 19 (15-37) U/L ALT 30 (12-78) U/L Alkaline Phosphatase 66 (45-117) U/L Total Creatine Kinase 132 (39-308) U/L CK-MB (CK-2) Less than 1.0 (0.5-3.6) ng/mL Troponin I Less than 0.02 L (0.02-0.05) ng/mL Total Protein 7.8 (6.4-8.2) g/dL Albumin 3.6 (3.4-5.0) g/dL Imaging Data Attestation: I personally reviewed and interpreted this imaging study as follows : My impression: Chest x-ray is normal Radiologist's impression: Chest X-Ray 03/25/18 15:38 CONCLUSION: 1. No acute cardiopulmonary disease. ECG Data EKG Prior to Arrival: No Attestation: I personally reviewed and interpreted this ECG as follows: Prior ECG tracings: not available for review Interpretation: EKG shows sinus rhythm. Rate is normal. axis is normal. OR interval is normal. There are no acute ST elevations. Discharge Plan Discharge Disposition Patient Disposition: 30 Still Patient Discharge Details Diagnosis: Chest pain Physicians Team ED Provider: Andrew Pearson Primary Care Provider: [facility],Physician 's Rxs /Orders / Referrals /Forms Prescriptions: No Action aspirin [Aspirin Low Dose] 81 mg Tablet,Delayed Release (Dr/Ec) 81 mg PO DAILY RF: 0 tadalafil [Cialis] 5 mg Tablet 5 mg PO DAILY RF: 0 aspirin [Aspir-81] 81 mg Tablet,Delayed Release (Dr/Ec) 162 mg PO ONCE RF: 0 verapamil 240 mg Capsule,Ext Rel. Pellets 24 Hr 240 mg PO HS RF: 0 Discharge Instructions Patient Printed Instructions: Chest Pain (ED) Discharge Interventions Interventions: Vital Signs Last Done: 03/25/18 15:41 Status ED Status: With Doctor
--- NOTE | 2018-03-25 16:05 | XR ---
EXAM DATE: 03/25/2018 3:58 PM EDT AGE/SEX: 52 years / Male INDICATIONS: Chest pain. CLINICAL DATA: This is the patient's initial encounter. Patient reports that signs and symptoms have been present for 1 day and indicates a pain score of 7/10. MEDICAL/SURGICAL HISTORY: . Carcinoma, prostate. Myocardial bridging syndrome. . Cholecystect [place]. Prostatectomy. Cardiac ablation. COMPARISON: [facility], CT CHEST W CONTRAST, 11/30/2017. . FINDINGS: A single AP view of the chest demonstrates the lungs to be symmetrically aerated without evidence of mass, infiltrate or effusion. Calcified right hilar nodes. The cardiomediastinal contours are unrema rkable. Osseous structures are intact. CONCLUSION: 1. No acute cardiopulmonary disease. Electronically signed by: Uziel Souza MD 03/25/2018 4:04 PM EDT
[2018-03-25 16:12] LABS: Baso % (Auto) 0.6 % (0.0-2.0); Eos # (Auto) 0.3 th/mm3 (0.0-0.4); Eos % (Auto) 4.2 % (0.0-4.0); Hematocrit 37.8 % (39.0-51.0); Hemoglobin 12.5 gm/dL (13.0-17.0); Lymph # (Auto) 2.8 th/mm3 (1.0-4.8); Lymph % (Auto) 41.3 % (9.0-44.0); Mean Corpuscular HGB Conc 33.1 % (32.0-36.0); Mean Corpuscular Hemoglobin 27.7 pg (27.0-34.0); Mean Corpuscular Volume 83.8 fL (80.0-100.0); Mean Platelet Volume 7.9 fL (7.0-11.0); Mono # (Auto) 0.5 th/mm3 (0.0-0.9); Mono % (Auto) 7.4 % (0.0-8.0); Neut # (Auto) 3.1 th/mm3 (1.8-7.7); Neut % (Auto) 46.5 % (16.0-70.0); Platelet Count 316 th/mm3 (150-450); Red Blood Count 4.51 mil/mm3 (4.50-5.90); Red Cell Distribution Width 14.5 % (11.6-17.2); White Blood Count 6.7 th/mm3 (4.0-11.0)
[2018-03-25 16:20] LABS: Chloride 103 meq/L (98-107); Potassium 3.3 meq/L (3.5-5.1); Sodium 139 meq/L (136-145)
[2018-03-25 16:24] LABS: Albumin 3.6 g/dL (3.4-5.0); Anion Gap 9 meq/L (5-15); Blood Urea Nitrogen 12 mg/dL (7-18); Calcium 8.7 mg/dL (8.5-10.1); Glucose,Random 110 mg/dL (74-106)
[2018-03-25 16:27] LABS: Alanine Aminotransferase 30 U/L (12-78); Aspartate Aminotransferase 19 U/L (15-37)
[2018-03-25 16:28] LABS: Glomerular Filtration Rate Greater Than 89 mL/min (>89)
[2018-03-25 16:29] LABS: Total Protein 7.8 g/dL (6.4-8.2)
[2018-03-25 16:30] LABS: Alkaline Phosphatase 66 U/L (45-117); Creatine Kinase 132 U/L (39-308)
[2018-03-25 16:33] VITALS: RESP 18
[2018-03-25] MEDS ORDERED: Morphine Inj 4 MG/ML Vial IV.PUSH ONE (17:15)
[2018-03-25] MEDS: Sodium Chlor 0.9% Inj 500 ML IV.CONT SCH (22:22)
[2018-03-26] MEDS ORDERED: Morphine Sulfate Inj 2 MG/ML Vial IV.PUSH PRN (00:21)
[2018-03-26 04:07] VITALS: BP 148/90; TEMP 96.9; O2SAT 96
[2018-03-26 04:22] VITALS: PULSE 53
[2018-03-26] MEDS: Sodium Chlor 0.9% Inj 500 ML IV.CONT SCH (05:12)
--- NOTE | 2018-03-26 07:44 | P.HP ---
History of Present Illness Primary Care Physician: [facility] Chief Complaint: Chest pain History of Present Illness: 52-year-old male with known history of hypertension, prostate cancer who presented to the emergency department for evaluation chest pain. Patient states that yesterday afternoon he developed a single onset of chest discomfort which is located middle part of his chest which was a scale of 8/10 on a pain scale that lasted for 5-10 minutes. Patient states that the pain radiated into his back. He denied any nausea, vomiting, diaphoresis, shortness of breath, dyspnea. Patient indicates that he has not had any recurrence of the discomfort since being in the hospital. Patient is followed by the [facility] cardiology closely. He indicates that they are currently arranging him to have cardiac ablation. Currently the patient is asymptomatic. The patient states that he does not want any further testing at this time. Patient does not want to undergo any cardiac stress testing. Patient wants to be discharged and follow-up with his office messenger. - Diagnosis (1) Chest pain Review of Systems All other systems reviewed negative except as stated in HPI Cardiovascular: Reports chest pain PMFSH - History History Provided By: Patient - Medical History Medical History: Medical History (Last Reviewed 03/26/18 @ 07:37 by SUPA Ga) Atrial fibrillation Hypertension Prostate CA - Surgical History Surgical History: Surgical History (Last Reviewed 03/26/18 @ 07:37 by SUPA Ga) H/O cardiac catheterization H/O prior ablation treatment History of cholecystectomy - Family History Family History: Family History (Last Updated 12/01/17 @ 09:13 by SUPA Ga) Mother Family history of cancer - Tobacco History Second Hand Smoke Exposure: No Tobacco Use In Past 30 Days: No Smoking Status: Former smoker - Alcohol History How Often Do You Have a Drink Containing Alcohol: Never - Substance Use History Substance History: No History of Abuse - Travel History Recent Travel in the [place] Within the Last 8 Weeks: No Recent Travel Out of the Country Within the Last 8 Weeks: No - Immunization History Tetanus Immunization: <5 Years Medications and Allergies Active Medications: Active Medications Aspirin (Ecotrin) 81 mg PO DAILY [facility] Aspirin (Ecotrin) 162 mg PO ONCE [facility] Sodium Chloride (Ns Inj) 500 mls @ 70 mls/hr IV.CONT .Q7H9M [facility] Last Admin: 03/26/18 05:12 Dose: 70 mls/hr Morphine Sulfate (Morphine Inj) 2 mg IV.PUSH Q3H PRN PRN Reason: CHEST PAIN Last Admin: 03/26/18 00:42 Dose: 2 mg Non-Formulary Medication (Verapamil [Verapamil]) 240 mg PO [facility] Sodium Chloride (Ns Flush) 2 ml IV.FLUSH UNSCH PRN PRN Reason: FLUSH AFTER USING IV ACCESS Last Admin: 03/26/18 00:43 Dose: 2 ml Allergies Allergy/AdvReac Type Severity Reaction Status Date / Time prednisone Allergy Mild rash Verified 11/30/17 19:06 Nitrate Analogues Allergy Unknown Hypotension Verified 11/30/17 19:06 amiodarone AdvReac Severe Tachycardia Verified 11/30/17 19:06 Home Medications Medication Instructions Recorded Confirmed Type aspirin [Aspirin Low Dose] 81 mg PO DAILY 11/30/17 03/25/18 History tadalafil [Cialis] 5 mg PO DAILY 12/01/17 03/25/18 History aspirin [Aspir-81] 162 mg PO ONCE 03/25/18 03/25/18 History verapamil 240 mg PO HS 03/25/18 03/25/18 History Exam Vital signs: Vital Signs 03/25/18 15:22 03/25/18 15:41 03/25/18 17:32 Temperature 98.2 F Pulse Rate 71 72 76 Respiratory Rate 20 18 Blood Pressure 166/101 H 163/80 H 144/86 H Pulse Oximetry 98 03/25/18 20:00 03/26/18 00:00 03/26/18 04:00 Temperature 96.3 F L 96.8 F L 96.9 F L Pulse Rate 71 58 L 53 L Respiratory Rate 18 18 18 Blood Pressure 152/90 H 154/93 H 148/90 H Pulse Oximetry 95 95 96 Intake & Output 03/25/18 03/26/18 03/26/18 18:59 06:59 18:59 Intake Total 500 / 500 Balance 500 / 500 Weight 99.6 kg 100.3 kg Intake: IV 500 / 500 NS Inj 500 ML @ 70 mls/hr IV. 500 / 500 CONT .Q7H9M [facility] Rx#:[id number] Other: # Voids 1 3 Weight On Admission 100.3 kg Narrative: GENERAL: Well-developed, well-nourished, in no acute distress. alert and orientated HEENT: Head is normocephalic without any lesions or masses noted. Facial features are symmetric. Eyes: Pupils equal round reactive to light. Extraocular muscles are intact. Conjunctivae were clear. Oropharyngeal: Pharynx without any erythema edema. Tongue is midline without deviation. Buccal mucosa is moist without any masses or lesions NECK: Supple without any masses. Trachea midline no deviation. No JVD, no bruits are appreciated CARDIAC: Regular rhythm, regular rate. S1/S2 are heard. No murmurs gallops or rubs. LUNGS: Clear to auscultation bilaterally. No wheeze, rhonchi or rales. No use of accessory muscles on inspiration or expiration. ABDOMEN: Soft, nontender. Nondistended. Bowel sounds heard in all 4 quadrants. No organomegaly or masses. Negative rebound, negative guarding EXTREMITIES: No edema, pulses are equal bilaterally. No cyanosis or clubbing NEUROLOGY: Mood and affect appear appropriate. Cranial nerves II through XII grossly intact. Muscle strength 5/5 in upper and lower extremities bilaterally. Deep tendon reflexes are 2+ in upper and lower extremities bilaterally. Results - Labs CBC & Chem 7: 03/25/18 15:45 03/25/18 15:45 Labs: Laboratory Results - last 24 hr 03/25/18 03/25/18 03/25/18 15:45 15:45 19:13 CBC w Diff Auto diff final WBC 6.7 RBC 4.51 Hgb 12.5 L Hct 37.8 L MCV 83.8 MCH 27.7 MCHC 33.1 RDW 14.5 Plt Count 316 MPV 7.9 Neut % (Auto) 46.5 Lymph % (Auto) 41.3 [place] % (Auto) 7.4 Eos % (Auto) 4.2 H Baso % (Auto) 0.6 Neut # (Auto) 3.1 Lymph # (Auto) 2.8 [place] # (Auto) 0.5 Eos # (Auto) 0.3 Baso # (Auto) 0.0 WBC Differential . Differential Comment . Sodium 139 Potassium 3.3 L Chloride 103 Carbon Dioxide 27.0 Anion Gap 9 BUN 12 Creatinine 0.84 Estimated GFR Greater than 89 Random Glucose 110 H Calcium 8.7 Total Bilirubin 0.4 AST 19 ALT 30 Alkaline Phosphatase 66 Total Creatine Kinase 132 CK-MB (CK-2) Less than 1.0 Troponin I Less than 0.02 L Less than 0.02 L Total Protein 7.8 Albumin 3.6 03/25/18 22:08 CBC w Diff WBC RBC Hgb Hct MCV MCH MCHC RDW Plt Count MPV Neut % (Auto) Lymph % (Auto) [place] % (Auto) Eos % (Auto) Baso % (Auto) Neut # (Auto) Lymph # (Auto) [place] # (Auto) Eos # (Auto) Baso # (Auto) WBC Differential Differential Comment Sodium Potassium Chloride Carbon Dioxide Anion Gap BUN Creatinine Estimated GFR Random Glucose Calcium Total Bilirubin AST ALT Alkaline Phosphatase Total Creatine Kinase CK-MB (CK-2) Troponin I Less than 0.02 L Total Protein Albumin - Imaging Impressions Chest X-Ray 03/25/18 15:38 CONCLUSION: 1. No acute cardiopulmonary disease. Caprini VTE Risk Assessment Caprini VTE Risk Assessment: No/Low Risk (score <= 1) Caprini Risk Assessment Model: Point Value = 1 Point Value = 2 Point Value = 3 Point Value = 5 Age 41-60 Minor surgery BMI > 25 kg/m2 Swollen legs Varicose veins or History of unexplained or recurrent spontaneous Oral contraceptives or hormone replacement Sepsis (< 1 month) Serious lung disease, including pneumonia (< 1 month) Abnormal pulmonary function Acute myocardial infarction Congestive heart failure (< 1 month) History of inflammatory bowel disease Medical patient at bed rest Age 61-74 Arthroscopic surgery Major open surgery (> 45 min) Laparoscopic surgery (> 45 min) Malignancy Confined to bed (> 72 hours) Immobilizing plaster cast Central venous access Age >= 75 History of VTE Family history of VTE Factor V Leiden Prothrombin [id number] Lupus anticoagulant Anticardiolipin antibodies Elevated serum homocysteine Heparin-induced thrombocytopenia Other congenital or acquired thrombophilia Stroke (< 1 month) Elective arthroplasty Hip, pelvis, or leg fracture Acute spinal cord injury (< 1 month) Prophylaxis Regimen: Total Risk Factor Score Risk Level Prophylaxis Regimen 0-1 Low Early ambulation 2 Moderate Order ONE of the following: *Sequential Compression Device (SCD) *Heparin 5000 units SQ BID 3-4 Higher Order ONE of the following medications: *Heparin 5000 units SQ TID *Enoxaparin/Lovenox 40 mg SQ daily (WT < 150 kg, CrCl > 30 mL/min) *Enoxaparin/Lovenox 30 mg SQ daily (WT < 150 kg, CrCl > 10-29 mL/min) *Enoxaparin/Lovenox 30 mg SQ BID (WT < 150 kg, CrCl > 30 mL/min) AND/OR *Sequential Compression Device (SCD) 5 or more Highest Order ONE of the following medications: *Heparin 5000 units SQ TID (Preferred with Epidurals) *Enoxaparin/Lovenox 40 mg SQ daily (WT < 150 kg, CrCl > 30 mL/min) *Enoxaparin/Lovenox 30 mg SQ daily (WT < 150 kg, CrCl > 10-29 mL/min) *Enoxaparin/Lovenox 30 mg SQ BID (WT < 150 kg, CrCl > 30 mL/min) AND *Sequential Compression Device (SCD) Assessment and Plan - Assessment (1) Chest pain Code(s): R07.9 - Chest pain, unspecified Status: Acute Onset Date: ~ - Plan Chest pain, precordial, atypical -Patient with increased risk factors include age, male, hypertension -Patient has been ruled out for acute coronary event with serial cardiac enzymes and remained negative -Serial EKGs that were reviewed by myself shows sinus rhythm without any changes -Patient has had cardiac stress testing done in April 2017. which was unremarkable -Patient is deferring any further testing at this time. He [facility]. I discussed with the patient that his cardiac enzymes were unremarkable, with no signs of any myocardial infarction or cardiac injury. I emphasized to the patient his need to follow-up with his office messenger. -Patient was admitted with aspirin, morphine as needed for pain Hypertension -Home medications were continued Atrial fibrillation, currently sinus rhythm -Home medications for rate control were continued -Patient anticoagulated on aspirin DVT prevention -Low risk, early ambulation Discharge Planning: Discharge home in stable condition Activity: Ad henry. Diet: Healthy heart diet Medication per medication reconciliation Follow-up with primary medical doctor in 1 week (1) Chest pain Qualifiers: Chest pain type: unspecified Qualified Code(s): R07.9 - Chest pain, unspecified
[2018-03-26] MEDS ORDERED: Verapamil SR 240 MG Tablet PO SCH (21:00)
--- NOTE | 2018-03-29 18:13 | ECG ---
Date Performed: 03/25/2018 Time Performed: 22:06:05 PTAGE: 52 years EKG: Sinus rhythm NONSPECIFIC T-WAVE ABNORMALITY BORDERLINE ECG PREVIOUS TRACING : 03/25/2018 19.06 Since the previous tracing, no significant change noted DOCTOR: Mango Wood Interpretating Date/Time 03/29/2018 18:11:44
--- NOTE | 2018-03-29 18:14 | ECG ---
Date Performed: 03/25/2018 Time Performed: 19:06:31 PTAGE: 52 years EKG: Sinus rhythm MODERATE VOLTAGE CRITERIA FOR LVH, CONSIDER NORMAL VARIANT BORDERLINE ECG PREVIOUS TRACING : 03/25/2018 15.15 Since the previous tracing, no significant change noted DOCTOR: Mango Wood Interpretating Date/Time 03/29/2018 18:11:54
--- NOTE | 2018-03-29 20:05 | ECG ---
Date Performed: 03/25/2018 Time Performed: 15:15:02 PTAGE: 52 years EKG: Sinus rhythm VOLTAGE CRITERIA FOR LVH NONSPECIFIC T-WAVE ABNORMALITY When compared to previous tracing, nonspecif ic T wave changes Are now present. ABNORMAL ECG PREVIOUS TRACING : 12/01/2017 01.37 DOCTOR: Mango Wood Interpretating Date/Time 03/29/2018 20:03:36
== END 2018-03-26 08:04 | disposition home or self-care (01) ==
LOC: PHEDA 15:09 → PHED 15:09 → PH3 18:27
PROVIDERS: ADMIT Internal Medicine; ATTEND Internal Medicine